=== PATIENT | male | born 1955 | race Caucasian/White ===

== ENCOUNTER 2016-07-26 06:45 | Emergency (ER) | payer OTHER ==
[~2016-07-26] VITALS: Ht 175.3 cm; Wt 85.3 kg
[2016-07-26 07:04] VITALS: BP 117/71
[2016-07-26] MEDS ORDERED: metroNIDAZOLE 500 MG TAB PO ONE (07:30)
[2016-07-26] MEDS ORDERED: LIDOCAINE 1% HCL (LOCAL ANESTH.) INJ 20ML MDV ONE (07:30)
[2016-07-26] MEDS ORDERED: cefTRIAXone SOD 1,000 MG VL ONE (07:30)
[2016-07-26] MEDS ORDERED: cefTRIAXone W LIDOCAINE 1 GM IM IM ONE (07:30)
[2016-07-26 07:33] LABS: Basophils # (auto) 0 uL; Basophils % (auto) 0.3 % (0.0-2.0); DEFINITIVE VIEW TRANSMISSION; Eosinophils # (auto) 0.1 uL; Eosinophils % (auto) 1.1 % (0.0-7.0); Hematocrit 43.5 % (41.0-53.0); Hemoglobin 14.5 g/dL (13.5-17.5); Lymphocytes # (auto) 1.6 uL; Lymphocytes % (auto) 13.8 % (10.0-50.0); Mean Corpuscular Hemoglobin 26.8 pg (28.0-32.0); Mean Corpuscular Hgb Conc. 33.3 g/dL (32.0-36.0); Mean Corpuscular Volume 80.4 fL (80.0-100.0); Mean Platelet Volume 7.5 fL (7.4-10.4); Monocytes # (auto) 0.8 uL; Monocytes % (auto) 7.5 % (0.0-12.0); Neutrophils # (auto) 8.7 uL; Neutrophils % (auto) 77.3 % (37.0-80.0); Platelet Count (auto) 401 10^3/uL (140-450); Red Cell Distribution Width 14.4 % (11.6-16.0); White Blood Cell 11.2 10^3/uL (4.4-10.8)
[2016-07-26 08:13] LABS: Albumin 3.2 g/dL (3.4-5.0); BUN/Creatinine Ratio 12.9; Bilirubin, Total 0.3 mg/dL (0.2-1.0); Calcium 9.3 mg/dL (8.5-10.1); Potassium 4.3 mmol/L (3.5-5.1); Total Protein 7.8 g/dL (6.4-8.2)
[2016-07-26] MEDS ORDERED: METF-490 PO (14:34)
[2016-07-26] MEDS ORDERED: GLIP-115 PO (14:34)
[2016-07-26] MEDS ORDERED: LEVEMIR SC (14:34)
[2016-07-26] MEDS ORDERED: AMIT1TAB92 PO (14:34)
[2016-07-26] MEDS ORDERED: CYCL7.5T15 PO (14:34)
== END 2016-07-26 08:01 | disposition left against medical advice (07) ==
LOC: ER 06:50
DX: L03.116 Cellulitis of left lower limb (principal); E11.9 Type 2 diabetes mellitus without complications; E78.5 Hyperlipidemia, unspecified; I10 Essential (primary) hypertension; F17.210 Nicotine dependence, cigarettes, uncomplicated
CPT/HCPCS: 36415; 80053; 85025; 87040; 96372; 99284; J0696; J2001

== ENCOUNTER 2016-07-26 09:53 | Inpatient (IN) | payer OTHER ==
[~2016-07-26] VITALS: Ht 175.3 cm; Wt 84.0 kg
[2016-07-26] MEDS ORDERED: DEXTROSE (50%) 50ML SYRG IV PRN (12:00)
[2016-07-26] MEDS ORDERED: ACETAMINOPHEN 325 MG TAB PO PRN (12:15)
[2016-07-26] MEDS ORDERED: PATIENTS OWN MEDICATION PO PRN ×2 (12:15)
[2016-07-26] MEDS ORDERED: TEMAZEPAM 15 MG CAP PO PRN (12:15)
[2016-07-26] MEDS ORDERED: DOCUSATE SOD 100 MG CAP PO PRN (12:15)
[2016-07-26] MEDS ORDERED: cefTRIAXone 1GM/50ML D5W 50 ML IV ONE (12:15)
[2016-07-26] MEDS ORDERED: MORPHINE SULF INJ 2 MG/ML SYRINGE 1ML IV PRN (12:15)
[2016-07-26] MEDS ORDERED: ONDANSETRON HCL 4 MG/2 ML VIAL IV PRN (12:15)
[2016-07-26] MEDS ORDERED: MULTIPLE VITAMIN TAB PO ONE (12:30)
[2016-07-26] MEDS ORDERED: ZINC SULFATE 220 MG CAP PO ONE (12:30)
[2016-07-26] MEDS ORDERED: FELDENE PO PRN (12:30)
[2016-07-26] MEDS: SODIUM CHLOR 0.9% PF (SALINE LOCK) 10ML VIAL IV SCH ×2 (14:00→21:07)
[2016-07-26] MEDS ORDERED: GLIP-115 PO (14:34)
[2016-07-26] MEDS ORDERED: LEVEMIR SC (14:34)
[2016-07-26] MEDS ORDERED: METF-490 PO (14:34)
[2016-07-26] MEDS ORDERED: AMIT1TAB92 PO (14:34)
[2016-07-26] MEDS ORDERED: CYCL7.5T15 PO (14:34)
[2016-07-26 14:35] VITALS: BP 123/71
[2016-07-26] MEDS: CLINDAMYCIN 300MG IV 50 ML IV SCH ×2 (15:09→21:07)
[2016-07-26 17:00] VITALS: BP 128/64
[2016-07-26] MEDS: ACCU-CHEK COMFORT CURVE STRIP VI SCH ×2 (17:20→21:30)
[2016-07-26] MEDS: InsuLIN REG 1unit/0.01ml Soln (100units/ml) SC SCH ×2 (17:22→21:51)
[2016-07-26] MEDS: Boost Glucose Control 8 Ounces PO SCH (17:32)
[2016-07-26] MEDS: metFORMIN HYDROCHLORIDE 500 MG TAB PO SCH (17:32)
[2016-07-26 20:05] VITALS: BP 120/64
[2016-07-26] MEDS: ASCORBIC ACID 500 MG TAB PO SCH (21:07)
[2016-07-26 21:52] VITALS: BP 117/50
[2016-07-27 05:17] VITALS: BP 142/74
[2016-07-27] MEDS: CLINDAMYCIN 300MG IV 50 ML IV SCH ×3 (05:38→22:08)
[2016-07-27] MEDS: SODIUM CHLOR 0.9% PF (SALINE LOCK) 10ML VIAL IV SCH ×3 (05:38→22:08)
[2016-07-27 06:09] LABS: Basophils # (auto) 0.1 uL; Basophils % (auto) 0.5 % (0.0-2.0); DEFINITIVE VIEW TRANSMISSION; Eosinophils # (auto) 0.2 uL; Hematocrit 41.8 % (41.0-53.0); Hemoglobin 13.8 g/dL (13.5-17.5); Lymphocytes # (auto) 2.4 uL; Lymphocytes % (auto) 23.1 % (10.0-50.0); Mean Corpuscular Hemoglobin 26.5 pg (28.0-32.0); Mean Corpuscular Hgb Conc. 32.9 g/dL (32.0-36.0); Mean Corpuscular Volume 80.7 fL (80.0-100.0); Mean Platelet Volume 7.8 fL (7.4-10.4); Monocytes # (auto) 0.9 uL; Monocytes % (auto) 8.2 % (0.0-12.0); Neutrophils % (auto) 66.2 % (37.0-80.0); Platelet Count (auto) 393 10^3/uL (140-450); Red Cell Distribution Width 14.8 % (11.6-16.0); White Blood Cell 10.5 10^3/uL (4.4-10.8)
[2016-07-27] MEDS: ACCU-CHEK COMFORT CURVE STRIP VI SCH ×4 (06:20→22:25)
[2016-07-27 06:34] LABS: Albumin 2.9 g/dL (3.4-5.0); Bilirubin, Total 0.3 mg/dL (0.2-1.0); Calcium 9.5 mg/dL (8.5-10.1); Potassium 4.8 mmol/L (3.5-5.1); Total Protein 7.1 g/dL (6.4-8.2)
[2016-07-27] MEDS: InsuLIN REG 1unit/0.01ml Soln (100units/ml) SC SCH ×4 (06:36→22:33)
[2016-07-27] MEDS: INSULIN DETEMIR(LEVEMIR) 1unit/0.01ml Soln (100units/ml) SC SCH (06:53)
[2016-07-27] MEDS: metFORMIN HYDROCHLORIDE 500 MG TAB PO SCH ×2 (06:54→17:37)
[2016-07-27] MEDS: Boost Glucose Control 8 Ounces PO SCH ×3 (08:00→17:37)
[2016-07-27 08:52] VITALS: BP 123/72
[2016-07-27] MEDS: ASCORBIC ACID 500 MG TAB PO SCH ×2 (09:18→22:08)
[2016-07-27] MEDS: MULTIPLE VITAMIN TAB PO SCH (09:18)
[2016-07-27] MEDS: cefTRIAXone 1GM/50ML D5W 50 ML IV SCH (09:18)
[2016-07-27] MEDS: ZINC SULFATE 220 MG CAP PO SCH (09:18)
[2016-07-27 13:00] VITALS: BP 123/69
[2016-07-27 16:52] VITALS: BP 102/54
[2016-07-27] MEDS: CYCLOBENZAPRINE HCL 10 MG TAB PO PRN (17:38)
[2016-07-27] MEDS: HYDROcodone-ACET 5/325MG TAB PO PRN (18:26)
[2016-07-27 23:24] VITALS: BP 109/63
[2016-07-28 05:24] VITALS: BP 112/56
[2016-07-28 05:43] LABS: BUN/Creatinine Ratio 17.6; Calcium 9.1 mg/dL (8.5-10.1); Potassium 4.1 mmol/L (3.5-5.1)
[2016-07-28] MEDS: CLINDAMYCIN 300MG IV 50 ML IV SCH ×3 (06:10→22:05)
[2016-07-28] MEDS: SODIUM CHLOR 0.9% PF (SALINE LOCK) 10ML VIAL IV SCH ×3 (06:10→22:05)
[2016-07-28] MEDS: metFORMIN HYDROCHLORIDE 500 MG TAB PO SCH ×2 (06:11→17:43)
[2016-07-28] MEDS: ACCU-CHEK COMFORT CURVE STRIP VI SCH ×4 (06:30→22:05)
[2016-07-28] MEDS: INSULIN DETEMIR(LEVEMIR) 1unit/0.01ml Soln (100units/ml) SC SCH (06:30)
[2016-07-28] MEDS: InsuLIN REG 1unit/0.01ml Soln (100units/ml) SC SCH ×4 (06:31→22:00)
[2016-07-28] MEDS: Boost Glucose Control 8 Ounces PO SCH ×3 (08:00→17:43)
[2016-07-28] MEDS: ZINC SULFATE 220 MG CAP PO SCH (09:51)
[2016-07-28] MEDS: MULTIPLE VITAMIN TAB PO SCH (09:52)
[2016-07-28] MEDS: ASCORBIC ACID 500 MG TAB PO SCH ×2 (09:52→22:05)
[2016-07-28 09:53] VITALS: BP 114/62
[2016-07-28] MEDS: cefTRIAXone 1GM/50ML D5W 50 ML IV SCH (09:54)
[2016-07-28] MEDS: HYDROcodone-ACET 5/325MG TAB PO PRN ×2 (13:59→23:28)
[2016-07-28] MEDS: CYCLOBENZAPRINE HCL 10 MG TAB PO PRN (13:59)
[2016-07-28 17:02] VITALS: BP 95/62
[2016-07-28 22:47] VITALS: BP 96/56
[2016-07-29] MEDS: CLINDAMYCIN 300MG IV 50 ML IV SCH ×3 (05:36→22:18)
[2016-07-29] MEDS: SODIUM CHLOR 0.9% PF (SALINE LOCK) 10ML VIAL IV SCH ×3 (05:36→22:19)
[2016-07-29 05:59] VITALS: BP 103/57
[2016-07-29] MEDS: ACCU-CHEK COMFORT CURVE STRIP VI SCH ×4 (06:47→22:00)
[2016-07-29] MEDS: InsuLIN REG 1unit/0.01ml Soln (100units/ml) SC SCH ×4 (06:48→22:00)
[2016-07-29] MEDS: INSULIN DETEMIR(LEVEMIR) 1unit/0.01ml Soln (100units/ml) SC SCH (06:50)
[2016-07-29] MEDS: metFORMIN HYDROCHLORIDE 500 MG TAB PO SCH ×2 (06:53→17:33)
[2016-07-29 09:00] VITALS: BP 103/59
[2016-07-29] MEDS: MULTIPLE VITAMIN TAB PO SCH (09:31)
[2016-07-29] MEDS: ZINC SULFATE 220 MG CAP PO SCH (09:31)
[2016-07-29] MEDS: ASCORBIC ACID 500 MG TAB PO SCH ×2 (09:31→22:18)
[2016-07-29] MEDS: cefTRIAXone 1GM/50ML D5W 50 ML IV SCH (09:32)
[2016-07-29] MEDS: Boost Glucose Control 8 Ounces PO SCH ×3 (09:48→17:33)
[2016-07-29] MEDS: HYDROcodone-ACET 5/325MG TAB PO PRN ×2 (11:15→22:48)
[2016-07-29 13:00] VITALS: BP 114/60
[2016-07-29 17:00] VITALS: BP 121/61
[2016-07-29 20:00] VITALS: BP 109/64
[2016-07-29 22:00] VITALS: BP 109/64
[2016-07-29] MEDS: CYCLOBENZAPRINE HCL 10 MG TAB PO PRN (22:48)
[2016-07-30 05:30] VITALS: BP 102/45
[2016-07-30] MEDS: SODIUM CHLOR 0.9% PF (SALINE LOCK) 10ML VIAL IV SCH ×3 (05:46→22:12)
[2016-07-30] MEDS: CLINDAMYCIN 300MG IV 50 ML IV SCH ×3 (05:46→22:11)
[2016-07-30] MEDS: ACCU-CHEK COMFORT CURVE STRIP VI SCH ×4 (06:24→22:21)
[2016-07-30] MEDS: InsuLIN REG 1unit/0.01ml Soln (100units/ml) SC SCH ×4 (06:24→22:00)
[2016-07-30] MEDS: INSULIN DETEMIR(LEVEMIR) 1unit/0.01ml Soln (100units/ml) SC SCH (06:40)
[2016-07-30] MEDS: metFORMIN HYDROCHLORIDE 500 MG TAB PO SCH ×2 (06:41→16:17)
[2016-07-30] MEDS: Boost Glucose Control 8 Ounces PO SCH ×3 (08:00→16:51)
[2016-07-30 09:00] VITALS: BP 118/63
[2016-07-30] MEDS: ZINC SULFATE 220 MG CAP PO SCH (09:38)
[2016-07-30] MEDS: MULTIPLE VITAMIN TAB PO SCH (09:38)
[2016-07-30] MEDS: ASCORBIC ACID 500 MG TAB PO SCH ×2 (09:38→22:12)
[2016-07-30] MEDS: cefTRIAXone 1GM/50ML D5W 50 ML IV SCH (09:38)
[2016-07-30 11:55] VITALS: BP 114/68
[2016-07-30] MEDS: HYDROcodone-ACET 5/325MG TAB PO PRN ×2 (16:18→22:11)
[2016-07-30] MEDS: CYCLOBENZAPRINE HCL 10 MG TAB PO PRN (16:18)
[2016-07-30 17:00] VITALS: BP 114/65
[2016-07-30 21:42] VITALS: BP 120/67
[2016-07-31 05:05] VITALS: BP 139/74
[2016-07-31] MEDS: CLINDAMYCIN 300MG IV 50 ML IV SCH ×2 (05:30→12:45)
[2016-07-31] MEDS: HYDROcodone-ACET 5/325MG TAB PO PRN (05:36)
[2016-07-31] MEDS: CYCLOBENZAPRINE HCL 10 MG TAB PO PRN (05:36)
[2016-07-31] MEDS: SODIUM CHLOR 0.9% PF (SALINE LOCK) 10ML VIAL IV SCH ×2 (05:39→13:41)
[2016-07-31 06:26] LABS: Basophils # (auto) 0 uL; Basophils % (auto) 0.4 % (0.0-2.0); DEFINITIVE VIEW TRANSMISSION; Eosinophils # (auto) 0.1 uL; Eosinophils % (auto) 1.3 % (0.0-7.0); Hematocrit 40.7 % (41.0-53.0); Hemoglobin 13.4 g/dL (13.5-17.5); Lymphocytes # (auto) 2.7 uL; Lymphocytes % (auto) 24.8 % (10.0-50.0); Mean Corpuscular Hemoglobin 26.3 pg (28.0-32.0); Mean Corpuscular Hgb Conc. 32.9 g/dL (32.0-36.0); Mean Platelet Volume 7.2 fL (7.4-10.4); Monocytes # (auto) 0.9 uL; Monocytes % (auto) 8.4 % (0.0-12.0); Neutrophils # (auto) 7.1 uL; Neutrophils % (auto) 65.1 % (37.0-80.0); Platelet Count (auto) 421 10^3/uL (140-450); Red Cell Distribution Width 14.6 % (11.6-16.0); White Blood Cell 10.8 10^3/uL (4.4-10.8)
[2016-07-31] MEDS: ACCU-CHEK COMFORT CURVE STRIP VI SCH ×2 (06:44→11:58)
[2016-07-31] MEDS: INSULIN DETEMIR(LEVEMIR) 1unit/0.01ml Soln (100units/ml) SC SCH (06:45)
[2016-07-31] MEDS: InsuLIN REG 1unit/0.01ml Soln (100units/ml) SC SCH ×2 (06:45→11:30)
[2016-07-31] MEDS: metFORMIN HYDROCHLORIDE 500 MG TAB PO SCH (06:46)
[2016-07-31 08:00] VITALS: BP 99/62
[2016-07-31] MEDS: Boost Glucose Control 8 Ounces PO SCH ×2 (08:00→11:59)
[2016-07-31] MEDS: ZINC SULFATE 220 MG CAP PO SCH (09:33)
[2016-07-31] MEDS: ASCORBIC ACID 500 MG TAB PO SCH (09:33)
[2016-07-31] MEDS: MULTIPLE VITAMIN TAB PO SCH (09:33)
[2016-07-31] MEDS: cefTRIAXone 1GM/50ML D5W 50 ML IV SCH (09:33)
[2016-07-31 13:00] VITALS: BP 118/62
== END 2016-07-31 14:00 | disposition home or self-care (01) | DRG 638 ==
LOC: ER 09:53 → OVERFLOW 09:54 → EAST 14:05 → CENTRAL 15:10
PROVIDERS: ADMIT Internal Medicine; ATTEND Internal Medicine
DX: E11.621 Type 2 diabetes mellitus with foot ulcer (principal); L03.116 Cellulitis of left lower limb; E44.1 Mild protein-calorie malnutrition; F17.210 Nicotine dependence, cigarettes, uncomplicated; L97.529 Non-pressure chronic ulcer of other part of left foot with unspecified severity; E78.5 Hyperlipidemia, unspecified; M45.9 Ankylosing spondylitis of unspecified sites in spine; E11.65 Type 2 diabetes mellitus with hyperglycemia; N18.2 Chronic kidney disease, stage 2 (mild); E11.22 Type 2 diabetes mellitus with diabetic chronic kidney disease; E11.21 Type 2 diabetes mellitus with diabetic nephropathy; I12.9 Hypertensive chronic kidney disease with stage 1 through stage 4 chronic kidney disease, or unspecified chronic kidney disease; Z82.49 Family history of ischemic heart disease and other diseases of the circulatory system; Z79.4 Long term (current) use of insulin; Z86.73 Personal history of transient ischemic attack (TIA), and cerebral infarction without residual deficits; Z68.27 Body mass index [BMI] 27.0-27.9, adult; Z83.3 Family history of diabetes mellitus
CPT/HCPCS: 36415; 73718; 80048; 80053; 80061; 82962; 83036; 83735; 85025; 87040; 87205; J0696; J1815; J3490

== ENCOUNTER 2016-08-31 18:38 | Inpatient (IN) | payer OTHER ==
[~2016-08-31] VITALS: Ht 175.3 cm; Wt 79.2 kg
[~2016-08-31 18:38] MED LIST: AMIT1TAB92 PO; CYCL7.5T15 PO; GLIP-115 PO; LEVEMIR SC; METF-490 PO
[2016-08-31 21:55] LABS: Basophils # (auto) 0.1 uL; Basophils % (auto) 1.1 % (0.0-2.0); DEFINITIVE VIEW TRANSMISSION; Eosinophils # (auto) 0.2 uL; Eosinophils % (auto) 1.5 % (0.0-7.0); Hematocrit 46.2 % (41.0-53.0); Hemoglobin 15.1 g/dL (13.5-17.5); Lymphocytes # (auto) 3.1 uL; Lymphocytes % (auto) 25.9 % (10.0-50.0); Mean Corpuscular Hgb Conc. 32.8 g/dL (32.0-36.0); Mean Corpuscular Volume 79.4 fL (80.0-100.0); Mean Platelet Volume 7.6 fL (7.4-10.4); Monocytes # (auto) 1.1 uL; Monocytes % (auto) 8.9 % (0.0-12.0); Neutrophils # (auto) 7.3 uL; Neutrophils % (auto) 62.6 % (37.0-80.0); Platelet Count (auto) 397 10^3/uL (140-450); Red Cell Distribution Width 14.8 % (11.6-16.0); White Blood Cell 11.8 10^3/uL (4.4-10.8)
[2016-08-31 22:17] LABS: Albumin 3.9 g/dL (3.4-5.0); BUN/Creatinine Ratio 18.4; Calcium 9.2 mg/dL (8.5-10.1); Potassium 4.1 mmol/L (3.5-5.1)
[2016-08-31 22:19] LABS: Bilirubin, Total 0.3 mg/dL (0.2-1.0); Total Protein 8.3 g/dL (6.4-8.2)
[2016-09-01 00:34] LABS: INR 0.96 (0.9-1.15); Prothrombin Time 10.4 sec (9.37-12.3)
[2016-09-01] MEDS ORDERED: DEXTROSE (50%) 50ML SYRG IV PRN (03:15)
[2016-09-01] MEDS ORDERED: MORPHINE SULF INJ 2 MG/ML SYRINGE 1ML IV PRN (03:15)
[2016-09-01] MEDS ORDERED: ONDANSETRON HCL 4 MG/2 ML VIAL IV PRN (03:15)
[2016-09-01] MEDS: SODIUM CHLORIDE 0.9% 1,000 ML IV SCH ×2 (03:26→15:33)
[2016-09-01 05:00] VITALS: BP_SYST 119; BP_SYST 157; BP_DIAS 66; BP_DIAS 83
[2016-09-01] MEDS: InsuLIN REG 1unit/0.01ml Soln (100units/ml) SC SCH ×3 (06:00→18:15)
[2016-09-01] MEDS: ACCU-CHEK COMFORT CURVE STRIP VI SCH ×3 (06:08→18:14)
[2016-09-01] MEDS: CLINDAMYCIN 600MG IV 50 ML IV SCH ×3 (06:08→23:10)
[2016-09-01] MEDS ORDERED: PIRO-23 PO (07:50)
[2016-09-01 08:00] VITALS: BP 130/68
[2016-09-01 08:07] VITALS: BP 130/68
[2016-09-01] MEDS: PANTOPRAZOLE SODIUM 40 MG/10 ML VIAL IV SCH (10:22)
[2016-09-01 12:17] VITALS: BP 98/58
[2016-09-01] MEDS ORDERED: ceFAZolin 1GM/50ML D5W 50 ML IV ONE (13:36)
[2016-09-01] MEDS ORDERED: MIDAZOLAM HCL 1MG/1ML-2 ML VIAL ONE (14:16)
[2016-09-01] MEDS ORDERED: PROPOFOL 10 MG/ML 20 ML IV ONE (14:16)
[2016-09-01] MEDS ORDERED: fentaNYL CITRATE 100 MCG/2 ML VL ONE (14:18)
[2016-09-01] MEDS ORDERED: fentaNYL CITRATE 100 MCG/2 ML VL IV ONE (15:00)
[2016-09-01] MEDS ORDERED: ONDANSETRON HCL 4 MG/2 ML VIAL IV ONE (15:00)
[2016-09-01] MEDS ORDERED: ePHEDrine SULFATE 50 MG/ML AMP IV PRN (15:00)
[2016-09-01] MEDS ORDERED: hydrALAZINE HCL 20 MG/ML VL IV PRN (15:00)
[2016-09-01 22:00] VITALS: BP 121/57
[2016-09-02] MEDS: InsuLIN REG 1unit/0.01ml Soln (100units/ml) SC SCH ×3 (00:52→12:00)
[2016-09-02] MEDS: SODIUM CHLORIDE 0.9% 1,000 ML IV SCH (04:03)
[2016-09-02 05:00] VITALS: BP 118/67
[2016-09-02] MEDS: ACCU-CHEK COMFORT CURVE STRIP VI SCH ×3 (06:00→12:00)
[2016-09-02] MEDS: CLINDAMYCIN 600MG IV 50 ML IV SCH ×2 (06:23→14:00)
[2016-09-02 06:33] LABS: Basophils # (auto) 0 uL; Basophils % (auto) 0.5 % (0.0-2.0); DEFINITIVE VIEW TRANSMISSION; Eosinophils # (auto) 0.2 uL; Eosinophils % (auto) 2.7 % (0.0-7.0); Hemoglobin 12.9 g/dL (13.5-17.5); Lymphocytes # (auto) 2.3 uL; Mean Corpuscular Hemoglobin 25.9 pg (28.0-32.0); Mean Corpuscular Hgb Conc. 32.2 g/dL (32.0-36.0); Mean Corpuscular Volume 80.6 fL (80.0-100.0); Monocytes # (auto) 0.8 uL; Monocytes % (auto) 9.8 % (0.0-12.0); Neutrophils # (auto) 4.4 uL; Platelet Count (auto) 298 10^3/uL (140-450); Red Cell Distribution Width 16.5 % (11.6-16.0); White Blood Cell 7.8 10^3/uL (4.4-10.8)
[2016-09-02 07:25] LABS: Bilirubin, Total 0.3 mg/dL (0.2-1.0); Calcium 8.5 mg/dL (8.5-10.1); Potassium 4.3 mmol/L (3.5-5.1); Total Protein 6.9 g/dL (6.4-8.2)
[2016-09-02 08:00] VITALS: BP 113/61
[2016-09-02 08:36] VITALS: BP 113/61
[2016-09-02] MEDS: PANTOPRAZOLE SODIUM 40 MG/10 ML VIAL IV SCH (10:16)
[2016-09-02 12:12] VITALS: BP 113/61
[2016-09-02 13:06] VITALS: BP 136/71
[2016-09-02 13:37] VITALS: BP 136/71
== END 2016-09-02 16:30 | disposition home or self-care (01) | DRG 624 ==
LOC: ER 18:50 → OVERFLOW 18:51 → WEST WING 09-01 03:42
PROVIDERS: ADMIT Nurse Practitioner; ATTEND Family Medicine
PROC: 0HRNXK3 Replacement of Left Foot Skin with Nonautologous Tissue Substitute, Full Thickness, External Approach (ICD-10-PCS; 2016-09-01)
PROC: 0JBR0ZZ Excision of Left Foot Subcutaneous Tissue and Fascia, Open Approach (ICD-10-PCS; principal; 2016-09-01 14:23)
DX: E11.621 Type 2 diabetes mellitus with foot ulcer (principal); L97.529 Non-pressure chronic ulcer of other part of left foot with unspecified severity; D72.829 Elevated white blood cell count, unspecified; I10 Essential (primary) hypertension; E78.5 Hyperlipidemia, unspecified; F17.210 Nicotine dependence, cigarettes, uncomplicated; Z82.49 Family history of ischemic heart disease and other diseases of the circulatory system; Z86.73 Personal history of transient ischemic attack (TIA), and cerebral infarction without residual deficits; Z83.3 Family history of diabetes mellitus
CPT/HCPCS: 36415; 71020; 80053; 82962; 84484; 85025; 85610; 85730; 87070; 87075; 87076; 87077; 87186; 87205; 93005; C9113; J0690; J1815; J2250; J2704; J3490

== ENCOUNTER 2020-07-15 08:41 | Inpatient (IN) | payer BC, OTHER ==
[~2020-07-15] VITALS: Ht 172.7 cm; Wt 68.1 kg
[~2020-07-15 08:41] MED LIST changes: -CYCL7.5T15 PO; +CYCL7.5T45 PO; -GLIP-115 PO; +GLIP5TAB12 PO; +PIRO20CA PO
[2020-07-15 09:17] LABS: Basophils # (auto) 0.1 10 ^3/uL (0-0.2); Eosinophils # (auto) 0.1 10 ^3/uL (0-0.8); Eosinophils % (auto) 1.1 % (0.0-7.0); Mean Corpuscular Hemoglobin 26.4 pg (28.0-32.0)
[2020-07-15 09:20] LABS: Basophils % (auto) 0.7 % (0.0-2.0); Hematocrit 38.5 % (41.0-53.0); Hemoglobin 13.1 g/dL (13.5-17.5); Lymphocytes # (auto) 1.9 10 ^3/uL (0.4-5.4); Lymphocytes % (auto) 14.5 % (10.0-50.0); Mean Corpuscular Hgb Conc. 33.9 g/dL (32.0-36.0); Mean Corpuscular Volume 77.7 fL (80.0-100.0); Monocytes # (auto) 1.3 10 ^3/uL (0-1.3); Monocytes % (auto) 9.6 % (0.0-12.0); Neutrophils # (auto) 9.7 10 ^3/uL (1.6-8.6); Neutrophils % (auto) 74.1 % (37.0-80.0); Nucleated Red Blood Cells % 0.4 %; Platelet Count (auto) 456 10^3/uL (140-450); Red Blood Cells 4.96 10^6/uL (4.5-5.90); Red Cell Distribution Width 15.5 % (11.8-14.3); White Blood Cell 13.1 10^3/uL (4.4-10.8)
[2020-07-15 09:34] LABS: Albumin 2.8 g/dL (3.4-5.0); Calcium 8.6 mg/dL (8.5-10.1)
[2020-07-15 09:37] LABS: BUN/Creatinine Ratio 14.1; Bilirubin, Total 0.4 mg/dL (0.2-1.0); Total Protein 7.5 g/dL (6.4-8.2)
[2020-07-15] MEDS ORDERED: PIPERACILLIN-TAZOB 3.375GM 100 ML IV ONE (12:00)
[2020-07-15] MEDS ORDERED: IOHEXOL 300 MG/ML 100ML BOTTLE IJ ONE (12:53)
[2020-07-15] MEDS ORDERED: IOHEXOL 350 MG/ML 100ML IJ ONE (13:14)
[2020-07-15] MEDS ORDERED: DEXTROSE (50%) 50ML SYRG IV PRN (13:45)
[2020-07-15] MEDS ORDERED: MORPHINE SULF INJ 2 MG/ML SYRINGE 1ML IV PRN (13:45)
[2020-07-15] MEDS ORDERED: ACETAMINOPHEN 500 MG TAB PO PRN (13:45)
[2020-07-15] MEDS ORDERED: NITROGLYCERIN 0.4 MG SL TAB SL PRN (13:45)
[2020-07-15] MEDS ORDERED: VANCOMYCIN PER PHARMACY 0 MG IV SCH (13:45)
[2020-07-15] MEDS ORDERED: cefTRIAXone 1GM/50ML D5W 50 ML IV SCH (13:50)
[2020-07-15 14:43] LABS: INR 1.08 (0.9-1.15); Partial Thromboplastin Time 34.2 sec (23.0-31.2)
[2020-07-15] MEDS ORDERED: MIDAZOLAM HCL 1MG/1ML-2 ML VIAL ONE (14:53)
[2020-07-15] MEDS ORDERED: fentaNYL CITRATE 100 MCG/2 ML VL ONE (14:53)
[2020-07-15] MEDS ORDERED: LIDOCAINE 2%HCL (LOCAL ANESTH.) INJ 20ML MDV ONE (14:54)
[2020-07-15] MEDS ORDERED: SODIUM CHL 0.9% 50 ML ONE (14:54)
[2020-07-15] MEDS ORDERED: VANCOMYCIN 1GM/250ML 250 ML IV ONE (16:00)
[2020-07-15] MEDS ORDERED: EPTIFIBATIDE INJ (2MG/ML) 10ML VIAL IV ONE (16:13)
[2020-07-15] MEDS ORDERED: diphenhdrAMINE HCL 50 MG/1 ML VL ONE (16:30)
[2020-07-15] MEDS ORDERED: CLOPIDOGREL 300 MG TAB ONE (16:39)
[2020-07-15] MEDS: InsuLIN REG 1unit/0.01ml Soln (100units/ml) SC SCH ×2 (18:41→21:33)
[2020-07-15] MEDS: ACCU-CHEK COMFORT CURVE STRIP VI SCH ×2 (18:41→21:33)
[2020-07-15 18:45] VITALS: BP 142/85
[2020-07-15] MEDS: SUCRALFATE 1 GM/10 ML ORAL SUSP PO SCH (19:11)
[2020-07-15] MEDS: cefTRIAXone 1GM/50ML D5W 50 ML IV SCH (19:12)
[2020-07-15 19:32] LABS: Basophils # (auto) 0.1 10 ^3/uL (0-0.2); Eosinophils # (auto) 0.1 10 ^3/uL (0-0.8); Lymphocytes # (auto) 2.2 10 ^3/uL (0.4-5.4); Neutrophils # (auto) 6.8 10 ^3/uL (1.6-8.6); Red Cell Distribution Width 15.2 % (11.8-14.3)
[2020-07-15 19:34] LABS: Basophils % (auto) 0.7 % (0.0-2.0); Eosinophils % (auto) 1.2 % (0.0-7.0); Hematocrit 37.7 % (41.0-53.0); Hemoglobin 12.9 g/dL (13.5-17.5); Mean Corpuscular Hemoglobin 26.6 pg (28.0-32.0); Mean Corpuscular Hgb Conc. 34.2 g/dL (32.0-36.0); Mean Corpuscular Volume 77.8 fL (80.0-100.0); Monocytes % (auto) 9.8 % (0.0-12.0); Neutrophils % (auto) 66.3 % (37.0-80.0); Platelet Count (auto) 377 10^3/uL (140-450); Red Blood Cells 4.85 10^6/uL (4.5-5.90); White Blood Cell 10.2 10^3/uL (4.4-10.8)
[2020-07-15 19:40] VITALS: BP 125/55
[2020-07-15 19:56] LABS: INR 1.22 (0.9-1.15); Partial Thromboplastin Time 60.4 sec (23.0-31.2)
[2020-07-15] MEDS ORDERED: HEPARIN SODIUM (PORCINE) 5000 UNITS/ML 1ML VIAL IV ONE (20:00)
[2020-07-15] MEDS: VANCOMYCIN 750mg/250ml 250 ML IV SCH (20:34)
[2020-07-15] MEDS: HEPARIN DRIP/D5W 100UNITS/ML 250 ML IV SCH (20:39)
[2020-07-15] MEDS: ATORVASTATIN 20 MG TAB PO SCH (21:32)
[2020-07-15] MEDS: PANTOPRAZOLE 40 MG/10 ML VIAL INJ IV SCH (21:32)
[2020-07-15 22:00] VITALS: BP 127/68
[2020-07-15] MEDS: MORPHINE SULF INJ 2 MG/ML SYRINGE 1ML IV PRN (22:07)
[2020-07-16 03:09] LABS: Basophils # (auto) 0.1 10 ^3/uL (0-0.2); Basophils % (auto) 0.7 % (0.0-2.0); Eosinophils # (auto) 0.1 10 ^3/uL (0-0.8); Eosinophils % (auto) 1.3 % (0.0-7.0); Hematocrit 36.4 % (41.0-53.0); Hemoglobin 12.3 g/dL (13.5-17.5); Lymphocytes # (auto) 2.4 10 ^3/uL (0.4-5.4); Lymphocytes % (auto) 22.2 % (10.0-50.0); Mean Corpuscular Hemoglobin 26.3 pg (28.0-32.0); Mean Corpuscular Hgb Conc. 33.7 g/dL (32.0-36.0); Monocytes % (auto) 8.8 % (0.0-12.0); Neutrophils # (auto) 7.4 10 ^3/uL (1.6-8.6); Nucleated Red Blood Cells % 0.1 %; Platelet Count (auto) 373 10^3/uL (140-450); Red Blood Cells 4.66 10^6/uL (4.5-5.90); Red Cell Distribution Width 15.5 % (11.8-14.3)
[2020-07-16 03:23] LABS: INR 1.08 (0.9-1.15); Partial Thromboplastin Time 65.9 sec (23.0-31.2)
[2020-07-16 03:26] LABS: BUN/Creatinine Ratio 13.5; Calcium 8.4 mg/dL (8.5-10.1)
[2020-07-16] MEDS: VANCOMYCIN 750mg/250ml 250 ML IV SCH ×3 (03:30→22:07)
[2020-07-16 04:27] LABS: Urine Bacteria FEW /hpf (None Seen); Urine Blood 3+ /uL (Negative); Urine Mucus FEW (None Seen); Urine Specific Gravity 1.024 (1.001-1.035); Urine WBC 9 /hpf (0 - 3)
[2020-07-16 06:00] VITALS: BP 122/61
[2020-07-16] MEDS: SUCRALFATE 1 GM/10 ML ORAL SUSP PO SCH ×3 (06:14→17:33)
[2020-07-16] MEDS: InsuLIN REG 1unit/0.01ml Soln (100units/ml) SC SCH ×4 (06:24→22:15)
[2020-07-16] MEDS: ACCU-CHEK COMFORT CURVE STRIP VI SCH ×4 (06:25→22:07)
[2020-07-16 09:00] VITALS: BP 111/61
[2020-07-16] MEDS: ASPirin 81 mg TAB PO SCH (09:06)
[2020-07-16] MEDS: CLOPIDOGREL BISULFATE 75 MG TAB PO SCH (09:06)
[2020-07-16] MEDS: cefTRIAXone 1GM/50ML D5W 50 ML IV SCH (09:06)
[2020-07-16] MEDS: PANTOPRAZOLE 40 MG/10 ML VIAL INJ IV SCH ×2 (09:06→22:06)
[2020-07-16 10:03] LABS: INR 1.08 (0.9-1.15)
[2020-07-16 10:45] LABS: Partial Thromboplastin Time 80.6 sec (23.0-31.2)
[2020-07-16] MEDS ORDERED: METF-929 PO (12:56)
[2020-07-16] MEDS ORDERED: INSU1INJ5 SC (12:56)
[2020-07-16 13:00] VITALS: BP 139/63
[2020-07-16] MEDS ORDERED: OMEP-260 PO (13:01)
[2020-07-16] MEDS ORDERED: LACT10SO3 PO (13:02)
[2020-07-16] MEDS ORDERED: FINA5TAB4 PO (13:02)
[2020-07-16] MEDS: HEPARIN DRIP/D5W 100UNITS/ML 250 ML IV SCH (15:04)
[2020-07-16 16:39] LABS: INR 1.06 (0.9-1.15)
[2020-07-16 16:46] LABS: Partial Thromboplastin Time 71.9 sec (23.0-31.2)
[2020-07-16 17:20] VITALS: BP 97/63
[2020-07-16 20:00] VITALS: BP 117/66
[2020-07-16] MEDS: MORPHINE SULF INJ 2 MG/ML SYRINGE 1ML IV PRN (20:06)
[2020-07-16 21:33] LABS: INR 1.05 (0.9-1.15)
[2020-07-16 22:00] VITALS: BP 107/53
[2020-07-16] MEDS ORDERED: VANCOMYCIN 750mg/250ml 250 ML IV SCH (22:00)
[2020-07-16] MEDS: ATORVASTATIN 20 MG TAB PO SCH (22:07)
[2020-07-17] MEDS: MORPHINE SULF INJ 2 MG/ML SYRINGE 1ML IV PRN ×3 (00:48→22:04)
[2020-07-17 03:36] LABS: Basophils # (auto) 0.1 10 ^3/uL (0-0.2); Monocytes # (auto) 1.4 10 ^3/uL (0-1.3); Neutrophils # (auto) 10.4 10 ^3/uL (1.6-8.6)
[2020-07-17 03:39] LABS: Basophils % (auto) 0.6 % (0.0-2.0); Eosinophils # (auto) 0.2 10 ^3/uL (0-0.8); Eosinophils % (auto) 1.6 % (0.0-7.0); Hematocrit 38.9 % (41.0-53.0); Lymphocytes # (auto) 2.2 10 ^3/uL (0.4-5.4); Lymphocytes % (auto) 15.5 % (10.0-50.0); Mean Corpuscular Hemoglobin 26.2 pg (28.0-32.0); Mean Corpuscular Hgb Conc. 33.4 g/dL (32.0-36.0); Mean Corpuscular Volume 78.2 fL (80.0-100.0); Monocytes % (auto) 9.7 % (0.0-12.0); Neutrophils % (auto) 72.6 % (37.0-80.0); Nucleated Red Blood Cells % 0.2 %; Platelet Count (auto) 423 10^3/uL (140-450); Red Blood Cells 4.97 10^6/uL (4.5-5.90); Red Cell Distribution Width 15.2 % (11.8-14.3); White Blood Cell 14.3 10^3/uL (4.4-10.8)
[2020-07-17 04:05] LABS: INR 1.04 (0.9-1.15)
[2020-07-17 04:09] LABS: Partial Thromboplastin Time 75.4 sec (23.0-31.2)
[2020-07-17 05:00] VITALS: BP_SYST 119; BP_SYST 123; BP_DIAS 54; BP_DIAS 69
[2020-07-17] MEDS: SUCRALFATE 1 GM/10 ML ORAL SUSP PO SCH ×3 (06:10→17:32)
[2020-07-17] MEDS: ACCU-CHEK COMFORT CURVE STRIP VI SCH ×4 (06:11→22:03)
[2020-07-17] MEDS: InsuLIN REG 1unit/0.01ml Soln (100units/ml) SC SCH ×4 (06:12→21:56)
[2020-07-17 09:00] VITALS: BP 94/55
[2020-07-17 09:14] VITALS: BP 94/55
[2020-07-17] MEDS: VANCOMYCIN 750mg/250ml 250 ML IV SCH ×2 (09:33→17:32)
[2020-07-17] MEDS: cefTRIAXone 1GM/50ML D5W 50 ML IV SCH (09:34)
[2020-07-17] MEDS: PANTOPRAZOLE 40 MG/10 ML VIAL INJ IV SCH ×2 (09:35→22:03)
[2020-07-17] MEDS: ASPirin 81 mg TAB PO SCH (09:35)
[2020-07-17] MEDS: CLOPIDOGREL BISULFATE 75 MG TAB PO SCH (09:35)
[2020-07-17] MEDS: HEPARIN DRIP/D5W 100UNITS/ML 250 ML IV SCH (11:27)
[2020-07-17 12:25] LABS: INR 1.09 (0.9-1.15)
[2020-07-17 12:27] LABS: Partial Thromboplastin Time 78.4 sec (23.0-31.2)
[2020-07-17 12:32] VITALS: BP 100/52
[2020-07-17] MEDS ORDERED: HEPARIN DRIP/D5W 100UNITS/ML 250 ML IV SCH (12:45)
[2020-07-17 16:47] VITALS: BP 97/57
[2020-07-17 18:40] LABS: INR 1.07 (0.9-1.15); Partial Thromboplastin Time 59.5 sec (23.0-31.2)
[2020-07-17 22:00] VITALS: BP 118/62
[2020-07-17] MEDS: ATORVASTATIN 20 MG TAB PO SCH (22:03)
[2020-07-18 02:31] LABS: INR 1.06 (0.9-1.15); Partial Thromboplastin Time 56.5 sec (23.0-31.2)
[2020-07-18] MEDS: VANCOMYCIN 750mg/250ml 250 ML IV SCH ×3 (04:28→23:49)
[2020-07-18 05:00] VITALS: BP 102/49
[2020-07-18] MEDS: MORPHINE SULF INJ 2 MG/ML SYRINGE 1ML IV PRN ×3 (05:49→16:25)
[2020-07-18 05:57] LABS: Basophils # (auto) 0.1 10 ^3/uL (0-0.2); Basophils % (auto) 0.5 % (0.0-2.0); Nucleated Red Blood Cells % 0.1 %
[2020-07-18 06:05] LABS: Eosinophils # (auto) 0.3 10 ^3/uL (0-0.8); Eosinophils % (auto) 2.2 % (0.0-7.0); Hematocrit 35.8 % (41.0-53.0); Hemoglobin 12.1 g/dL (13.5-17.5); Lymphocytes # (auto) 1.6 10 ^3/uL (0.4-5.4); Lymphocytes % (auto) 13.4 % (10.0-50.0); Mean Corpuscular Hemoglobin 26.2 pg (28.0-32.0); Mean Corpuscular Hgb Conc. 33.8 g/dL (32.0-36.0); Mean Corpuscular Volume 77.5 fL (80.0-100.0); Monocytes # (auto) 1.3 10 ^3/uL (0-1.3); Monocytes % (auto) 10.9 % (0.0-12.0); Neutrophils # (auto) 8.8 10 ^3/uL (1.6-8.6); Platelet Count (auto) 367 10^3/uL (140-450); Red Blood Cells 4.62 10^6/uL (4.5-5.90); Red Cell Distribution Width 15.1 % (11.8-14.3)
[2020-07-18 06:17] LABS: INR 1.07 (0.9-1.15); Partial Thromboplastin Time 49.6 sec (23.0-31.2)
[2020-07-18] MEDS: ACCU-CHEK COMFORT CURVE STRIP VI SCH ×4 (07:00→21:48)
[2020-07-18] MEDS: SUCRALFATE 1 GM/10 ML ORAL SUSP PO SCH ×3 (07:00→18:23)
[2020-07-18] MEDS: InsuLIN REG 1unit/0.01ml Soln (100units/ml) SC SCH ×4 (07:00→21:48)
[2020-07-18] MEDS ORDERED: ROPIVACAINE 0.5% (5MG/ML) 20ML AMPULE IJ ONE (07:05)
[2020-07-18] MEDS ORDERED: ceFAZolin 1GM VL ONE (07:05)
[2020-07-18] MEDS ORDERED: PROPOFOL 10 MG/ML 20 ML IV ONE (07:07)
[2020-07-18] MEDS ORDERED: SODIUM CHLORIDE LOCK 10 ML ONE (07:07)
[2020-07-18] MEDS ORDERED: ONDANSETRON HCL 4 MG/2 ML VIAL ONE (07:07)
[2020-07-18] MEDS ORDERED: fentaNYL CITRATE 100 MCG/2 ML VL ONE (07:07)
[2020-07-18] MEDS ORDERED: MIDAZOLAM HCL 1MG/1ML-2 ML VIAL ONE (07:07)
[2020-07-18] MEDS ORDERED: ACCU-CHEK COMFORT CURVE STRIP VI ONE (07:30)
[2020-07-18] MEDS ORDERED: MORPHINE SULFATE 4 MG/ML SYR/VIAL IV PRN (07:30)
[2020-07-18] MEDS ORDERED: ONDANSETRON HCL 4 MG/2 ML VIAL IV PRN (07:30)
[2020-07-18] MEDS ORDERED: HYDROmorphone HCL 2 MG/ML VL IV PRN (07:30)
[2020-07-18] MEDS ORDERED: ceFAZolin 1GM/50ML 50 ML IV ONE (07:33)
[2020-07-18 08:00] VITALS: BP 106/62
[2020-07-18 08:41] VITALS: BP 102/49
[2020-07-18] MEDS: CLOPIDOGREL BISULFATE 75 MG TAB PO SCH (09:38)
[2020-07-18] MEDS: ASPirin 81 mg TAB PO SCH (09:38)
[2020-07-18] MEDS: PANTOPRAZOLE 40 MG/10 ML VIAL INJ IV SCH ×2 (09:38→21:28)
[2020-07-18] MEDS: cefTRIAXone 1GM/50ML D5W 50 ML IV SCH (09:39)
[2020-07-18 13:08] VITALS: BP 121/63
[2020-07-18 16:46] VITALS: BP 106/66
[2020-07-18] MEDS: ATORVASTATIN 20 MG TAB PO SCH (21:28)
[2020-07-18 22:00] VITALS: BP 111/74
[2020-07-19 05:00] VITALS: BP 115/65
[2020-07-19] MEDS: ACCU-CHEK COMFORT CURVE STRIP VI SCH ×4 (06:22→21:30)
[2020-07-19] MEDS: InsuLIN REG 1unit/0.01ml Soln (100units/ml) SC SCH ×4 (06:23→21:30)
[2020-07-19] MEDS: SUCRALFATE 1 GM/10 ML ORAL SUSP PO SCH ×3 (06:23→18:20)
[2020-07-19 08:00] VITALS: BP 115/64
[2020-07-19 08:20] VITALS: BP 115/64
[2020-07-19] MEDS: cefTRIAXone 1GM/50ML D5W 50 ML IV SCH (09:57)
[2020-07-19] MEDS: PANTOPRAZOLE 40 MG/10 ML VIAL INJ IV SCH ×2 (09:57→21:29)
[2020-07-19] MEDS: VANCOMYCIN 750mg/250ml 250 ML IV SCH ×2 (09:58→19:50)
[2020-07-19] MEDS: CLOPIDOGREL BISULFATE 75 MG TAB PO SCH (09:58)
[2020-07-19] MEDS: ASPirin 81 mg TAB PO SCH (09:58)
[2020-07-19 13:16] VITALS: BP 102/64
[2020-07-19 16:59] VITALS: BP 102/64
[2020-07-19] MEDS: MORPHINE SULF INJ 2 MG/ML SYRINGE 1ML IV PRN (20:34)
[2020-07-19] MEDS: ONDANSETRON HCL 4 MG/2 ML VIAL IV PRN (20:34)
[2020-07-19] MEDS: ATORVASTATIN 20 MG TAB PO SCH (21:29)
[2020-07-19 22:00] VITALS: BP 101/55
[2020-07-20 05:00] VITALS: BP 118/58
[2020-07-20] MEDS: VANCOMYCIN 750mg/250ml 250 ML IV SCH ×2 (05:36→16:50)
[2020-07-20] MEDS: InsuLIN REG 1unit/0.01ml Soln (100units/ml) SC SCH ×4 (06:04→23:35)
[2020-07-20] MEDS: SUCRALFATE 1 GM/10 ML ORAL SUSP PO SCH ×3 (06:04→18:05)
[2020-07-20] MEDS: ACCU-CHEK COMFORT CURVE STRIP VI SCH ×4 (06:04→23:13)
[2020-07-20 08:00] VITALS: BP 93/49
[2020-07-20 08:17] VITALS: BP 93/79
[2020-07-20] MEDS: ASPirin 81 mg TAB PO SCH (09:24)
[2020-07-20] MEDS: PANTOPRAZOLE 40 MG/10 ML VIAL INJ IV SCH ×2 (09:24→23:30)
[2020-07-20] MEDS: CLOPIDOGREL BISULFATE 75 MG TAB PO SCH (09:24)
[2020-07-20] MEDS: cefTRIAXone 1GM/50ML D5W 50 ML IV SCH (09:24)
[2020-07-20 12:57] VITALS: BP 119/55
[2020-07-20 13:46] LABS: INR 1.09 (0.9-1.15)
[2020-07-20 16:44] VITALS: BP 120/62
[2020-07-20] MEDS: MORPHINE SULF INJ 2 MG/ML SYRINGE 1ML IV PRN ×2 (18:06→22:59)
[2020-07-20 22:00] VITALS: BP 106/54
[2020-07-20] MEDS: ATORVASTATIN 20 MG TAB PO SCH (23:14)
[2020-07-21] MEDS: VANCOMYCIN 750mg/250ml 250 ML IV SCH ×3 (02:32→23:15)
[2020-07-21 05:00] VITALS: BP 105/48
[2020-07-21] MEDS: ACCU-CHEK COMFORT CURVE STRIP VI SCH ×4 (06:12→22:00)
[2020-07-21] MEDS: InsuLIN REG 1unit/0.01ml Soln (100units/ml) SC SCH ×4 (06:17→22:51)
[2020-07-21] MEDS: SUCRALFATE 1 GM/10 ML ORAL SUSP PO SCH ×3 (07:00→16:30)
[2020-07-21 08:47] VITALS: BP 113/56
[2020-07-21] MEDS: cefTRIAXone 1GM/50ML D5W 50 ML IV SCH (09:20)
[2020-07-21] MEDS: PANTOPRAZOLE 40 MG/10 ML VIAL INJ IV SCH ×2 (09:20→23:15)
[2020-07-21] MEDS: ASPirin 81 mg TAB PO SCH (09:21)
[2020-07-21] MEDS: CLOPIDOGREL BISULFATE 75 MG TAB PO SCH (09:21)
[2020-07-21 13:00] VITALS: BP 106/56
[2020-07-21] MEDS ORDERED: ENOXAPARIN SOD 60 MG/0.6 ML SYRINGE SC ONE (13:00)
[2020-07-21 16:58] LABS: Calcium 8.4 mg/dL (8.5-10.1); Potassium 3.7 mmol/L (3.5-5.1)
[2020-07-21 17:00] VITALS: BP 116/93
[2020-07-21 17:00] LABS: BUN/Creatinine Ratio 11.7
[2020-07-21 22:00] VITALS: BP 124/65
[2020-07-21] MEDS: ATORVASTATIN 20 MG TAB PO SCH (23:16)
[2020-07-21] MEDS: MORPHINE SULF INJ 2 MG/ML SYRINGE 1ML IV PRN (23:59)
[2020-07-22 05:00] VITALS: BP 116/63
[2020-07-22] MEDS: SUCRALFATE 1 GM/10 ML ORAL SUSP PO SCH ×3 (06:25→17:45)
[2020-07-22] MEDS: ACCU-CHEK COMFORT CURVE STRIP VI SCH ×4 (06:40→22:31)
[2020-07-22] MEDS: InsuLIN REG 1unit/0.01ml Soln (100units/ml) SC SCH ×4 (06:40→22:23)
[2020-07-22 09:00] VITALS: BP 101/56
[2020-07-22] MEDS: ASPirin 81 mg TAB PO SCH (10:00)
[2020-07-22] MEDS: CLOPIDOGREL BISULFATE 75 MG TAB PO SCH (10:00)
[2020-07-22] MEDS: VANCOMYCIN 750mg/250ml 250 ML IV SCH ×2 (10:49→18:35)
[2020-07-22] MEDS ORDERED: IODIXANOL 320MG/ML 100ML BTL IV ONE ×3 (11:53→16:17)
[2020-07-22] MEDS ORDERED: HEPARIN IN NS 1000Units/500mL 0 ML ONE (11:53)
[2020-07-22] MEDS ORDERED: LIDOCAINE 2%HCL (LOCAL ANESTH.) INJ 20ML MDV ONE ×2 (11:53→15:10)
[2020-07-22] MEDS: MORPHINE SULF INJ 2 MG/ML SYRINGE 1ML IV PRN ×2 (13:15→21:22)
[2020-07-22] MEDS ORDERED: fentaNYL CITRATE 100 MCG/2 ML VL ONE (15:24)
[2020-07-22] MEDS ORDERED: MIDAZOLAM HCL 1MG/1ML-2 ML VIAL ONE (15:24)
[2020-07-22] MEDS ORDERED: SODIUM CHL 0.9% 50 ML ONE (15:24)
[2020-07-22] MEDS ORDERED: ANGIOMAX 250 MG VIAL IV ONE (15:24)
[2020-07-22] MEDS: cefTRIAXone 1GM/50ML D5W 50 ML IV SCH (17:43)
[2020-07-22] MEDS: PANTOPRAZOLE 40 MG/10 ML VIAL INJ IV SCH ×2 (17:43→22:26)
[2020-07-22] MEDS: ONDANSETRON HCL 4 MG/2 ML VIAL IV PRN (21:21)
[2020-07-22 22:00] VITALS: BP 110/51
[2020-07-22] MEDS: ATORVASTATIN 20 MG TAB PO SCH (22:16)
[2020-07-23] MEDS: VANCOMYCIN 750mg/250ml 250 ML IV SCH (04:00)
[2020-07-23] MEDS ORDERED: VANCOMYCIN 1GM/250ML 250 ML IV ONE (04:28)
[2020-07-23 05:01] VITALS: BP 118/63
[2020-07-23] MEDS: SUCRALFATE 1 GM/10 ML ORAL SUSP PO SCH ×3 (06:27→17:17)
[2020-07-23] MEDS: InsuLIN REG 1unit/0.01ml Soln (100units/ml) SC SCH ×4 (06:27→21:44)
[2020-07-23] MEDS: ACCU-CHEK COMFORT CURVE STRIP VI SCH ×4 (06:29→21:24)
[2020-07-23] MEDS ORDERED: ceFAZolin 1GM VL ONE (06:58)
[2020-07-23] MEDS ORDERED: GLYCOPYRROLATE 0.2 MG/ML 1ML VIAL ONE (07:15)
[2020-07-23] MEDS ORDERED: fentaNYL CITRATE 100 MCG/2 ML VL ONE (07:15)
[2020-07-23] MEDS ORDERED: ONDANSETRON HCL 4 MG/2 ML VIAL ONE (07:15)
[2020-07-23] MEDS ORDERED: LIDOCAINE 2% (LOCAL ANESTH.) PF 5ml SDV ONE (07:15)
[2020-07-23] MEDS ORDERED: DexAMETHasone SOD PHOS 10MG/1ML VIAL INJ ONE (07:15)
[2020-07-23] MEDS ORDERED: PROPOFOL 10 MG/ML 20 ML IV ONE (07:15)
[2020-07-23] MEDS ORDERED: MIDAZOLAM HCL 1MG/1ML-2 ML VIAL ONE (07:15)
[2020-07-23] MEDS ORDERED: ceFAZolin 1GM/50ML 50 ML IV ONE (07:27)
[2020-07-23] MEDS ORDERED: HYDROmorphone HCL 2 MG/ML VL ONE (07:55)
[2020-07-23] MEDS ORDERED: ONDANSETRON HCL 4 MG/2 ML VIAL IV PRN (08:45)
[2020-07-23] MEDS ORDERED: ACCU-CHEK COMFORT CURVE STRIP VI ONE (08:45)
[2020-07-23] MEDS ORDERED: HYDROmorphone HCL 2 MG/ML VL IV PRN (08:45)
[2020-07-23 09:00] VITALS: BP 108/54
[2020-07-23] MEDS: cefTRIAXone 1GM/50ML D5W 50 ML IV SCH (11:03)
[2020-07-23] MEDS: PANTOPRAZOLE 40 MG/10 ML VIAL INJ IV SCH ×2 (11:03→21:24)
[2020-07-23 13:00] VITALS: BP 112/59
[2020-07-23] MEDS: VANCOMYCIN 1GM/250ML 250 ML IV SCH (14:29)
[2020-07-23 16:47] VITALS: BP 107/61
[2020-07-23] MEDS: ATORVASTATIN 20 MG TAB PO SCH (21:24)
[2020-07-23 22:00] VITALS: BP 104/54
[2020-07-24] MEDS: VANCOMYCIN 1GM/250ML 250 ML IV SCH ×3 (00:17→20:16)
[2020-07-24] MEDS: MORPHINE SULF INJ 2 MG/ML SYRINGE 1ML IV PRN ×4 (02:32→20:16)
[2020-07-24 05:00] VITALS: BP 116/64
[2020-07-24] MEDS: SUCRALFATE 1 GM/10 ML ORAL SUSP PO SCH ×3 (06:13→17:28)
[2020-07-24] MEDS: ACCU-CHEK COMFORT CURVE STRIP VI SCH ×4 (06:21→21:34)
[2020-07-24] MEDS: InsuLIN REG 1unit/0.01ml Soln (100units/ml) SC SCH ×4 (06:32→21:37)
[2020-07-24 08:40] VITALS: BP 109/53
[2020-07-24] MEDS: cefTRIAXone 1GM/50ML D5W 50 ML IV SCH (10:06)
[2020-07-24] MEDS: PANTOPRAZOLE 40 MG/10 ML VIAL INJ IV SCH ×2 (10:06→21:34)
[2020-07-24 13:00] VITALS: BP 115/61
[2020-07-24 16:42] VITALS: BP 112/66
[2020-07-24] MEDS: ATORVASTATIN 20 MG TAB PO SCH (21:34)
[2020-07-24 22:00] VITALS: BP 99/53
[2020-07-25] MEDS: MORPHINE SULF INJ 2 MG/ML SYRINGE 1ML IV PRN ×5 (02:08→21:32)
[2020-07-25 03:37] LABS: Eosinophils # (auto) 0.5 10 ^3/uL (0-0.8); Hemoglobin 10.9 g/dL (13.5-17.5); Lymphocytes # (auto) 1.3 10 ^3/uL (0.4-5.4); Lymphocytes % (auto) 14.2 % (10.0-50.0)
[2020-07-25 03:39] LABS: Basophils # (auto) 0.1 10 ^3/uL (0-0.2); Basophils % (auto) 0.9 % (0.0-2.0); Eosinophils % (auto) 5.9 % (0.0-7.0); Hematocrit 31.8 % (41.0-53.0); Mean Corpuscular Hemoglobin 26.5 pg (28.0-32.0); Mean Corpuscular Hgb Conc. 34.1 g/dL (32.0-36.0); Mean Corpuscular Volume 77.7 fL (80.0-100.0); Monocytes # (auto) 0.9 10 ^3/uL (0-1.3); Neutrophils # (auto) 6.3 10 ^3/uL (1.6-8.6); Nucleated Red Blood Cells % 0.1 %; Platelet Count (auto) 350 10^3/uL (140-450); Red Cell Distribution Width 15.1 % (11.8-14.3); White Blood Cell 9.2 10^3/uL (4.4-10.8)
[2020-07-25 04:37] LABS: BUN/Creatinine Ratio 16.9; Calcium 8.4 mg/dL (8.5-10.1); Potassium 4.3 mmol/L (3.5-5.1)
[2020-07-25 05:00] VITALS: BP 93/42
[2020-07-25] MEDS: SUCRALFATE 1 GM/10 ML ORAL SUSP PO SCH ×3 (06:10→17:40)
[2020-07-25] MEDS: ACCU-CHEK COMFORT CURVE STRIP VI SCH ×4 (06:10→21:32)
[2020-07-25] MEDS: InsuLIN REG 1unit/0.01ml Soln (100units/ml) SC SCH ×4 (06:11→22:29)
[2020-07-25 09:00] VITALS: BP 111/62
[2020-07-25] MEDS: cefTRIAXone 1GM/50ML D5W 50 ML IV SCH (09:25)
[2020-07-25] MEDS: VANCOMYCIN 1GM/250ML 250 ML IV SCH ×2 (10:18→23:11)
[2020-07-25] MEDS: PANTOPRAZOLE 40 MG/10 ML VIAL INJ IV SCH ×2 (10:18→21:32)
[2020-07-25 13:00] VITALS: BP 117/64
[2020-07-25] MEDS: ATORVASTATIN 20 MG TAB PO SCH (21:32)
[2020-07-25 22:00] VITALS: BP 110/60
[2020-07-26] MEDS: MORPHINE SULF INJ 2 MG/ML SYRINGE 1ML IV PRN ×3 (02:35→23:02)
[2020-07-26 05:10] VITALS: BP 105/54
[2020-07-26] MEDS: SUCRALFATE 1 GM/10 ML ORAL SUSP PO SCH ×3 (06:50→16:33)
[2020-07-26] MEDS: ACCU-CHEK COMFORT CURVE STRIP VI SCH ×4 (06:50→22:00)
[2020-07-26] MEDS: InsuLIN REG 1unit/0.01ml Soln (100units/ml) SC SCH ×4 (06:57→22:45)
[2020-07-26 09:12] VITALS: BP 101/40
[2020-07-26 10:53] LABS: Basophils # (auto) 0.1 10 ^3/uL (0-0.2); Eosinophils # (auto) 0.6 10 ^3/uL (0-0.8); Hemoglobin 11.6 g/dL (13.5-17.5); Lymphocytes # (auto) 1.3 10 ^3/uL (0.4-5.4); Neutrophils # (auto) 7.8 10 ^3/uL (1.6-8.6)
[2020-07-26 10:57] LABS: Eosinophils % (auto) 5.5 % (0.0-7.0); Hematocrit 33.7 % (41.0-53.0); Lymphocytes % (auto) 11.8 % (10.0-50.0); Mean Corpuscular Hemoglobin 26.8 pg (28.0-32.0); Mean Corpuscular Hgb Conc. 34.5 g/dL (32.0-36.0); Mean Corpuscular Volume 77.7 fL (80.0-100.0); Monocytes % (auto) 9.3 % (0.0-12.0); Neutrophils % (auto) 72.4 % (37.0-80.0); Nucleated Red Blood Cells % 0.1 %; Platelet Count (auto) 434 10^3/uL (140-450); Red Blood Cells 4.33 10^6/uL (4.5-5.90); Red Cell Distribution Width 15.4 % (11.8-14.3); White Blood Cell 10.8 10^3/uL (4.4-10.8)
[2020-07-26 11:02] LABS: Potassium 4.4 mmol/L (3.5-5.1)
[2020-07-26 11:06] LABS: BUN/Creatinine Ratio 14.5
[2020-07-26] MEDS: PANTOPRAZOLE 40 MG/10 ML VIAL INJ IV SCH ×2 (11:28→22:45)
[2020-07-26] MEDS: cefTRIAXone 1GM/50ML D5W 50 ML IV SCH (11:29)
[2020-07-26] MEDS: predniSONE 20 MG TAB PO SCH (12:10)
[2020-07-26 13:10] VITALS: BP 113/67
[2020-07-26] MEDS: VANCOMYCIN 1GM/250ML 250 ML IV SCH (14:10)
[2020-07-26] MEDS: diphenhdrAMINE HCL 50 MG/1 ML VL IV SCH ×2 (14:11→22:45)
[2020-07-26] MEDS: DOCUSATE SOD 100 MG CAP PO SCH ×2 (15:45→19:41)
[2020-07-26 17:13] VITALS: BP 111/56
[2020-07-26 22:00] VITALS: BP 104/64
[2020-07-26] MEDS: ATORVASTATIN 20 MG TAB PO SCH (22:00)
[2020-07-27] MEDS: VANCOMYCIN 1GM/250ML 250 ML IV SCH ×2 (04:04→17:41)
[2020-07-27 05:00] VITALS: BP 105/67
[2020-07-27] MEDS: diphenhdrAMINE HCL 50 MG/1 ML VL IV SCH ×3 (05:46→21:23)
[2020-07-27] MEDS: MORPHINE SULF INJ 2 MG/ML SYRINGE 1ML IV PRN ×4 (05:46→21:34)
[2020-07-27] MEDS: InsuLIN REG 1unit/0.01ml Soln (100units/ml) SC SCH ×4 (06:46→21:24)
[2020-07-27] MEDS: ACCU-CHEK COMFORT CURVE STRIP VI SCH ×4 (06:54→21:24)
[2020-07-27] MEDS: SUCRALFATE 1 GM/10 ML ORAL SUSP PO SCH ×3 (06:54→16:51)
[2020-07-27 08:53] VITALS: BP 110/61
[2020-07-27] MEDS: DOCUSATE SOD 100 MG CAP PO SCH ×3 (10:00→21:24)
[2020-07-27] MEDS: predniSONE 20 MG TAB PO SCH (10:20)
[2020-07-27] MEDS: PANTOPRAZOLE 40 MG/10 ML VIAL INJ IV SCH ×2 (10:20→21:24)
[2020-07-27] MEDS: cefTRIAXone 1GM/50ML D5W 50 ML IV SCH (10:20)
[2020-07-27 13:16] VITALS: BP 129/70
[2020-07-27 16:50] VITALS: BP 105/59
[2020-07-27] MEDS: ATORVASTATIN 20 MG TAB PO SCH (21:24)
[2020-07-27 22:00] VITALS: BP 118/63
[2020-07-28 05:00] VITALS: BP 130/65
[2020-07-28] MEDS: InsuLIN REG 1unit/0.01ml Soln (100units/ml) SC SCH ×3 (06:15→17:06)
[2020-07-28] MEDS: ACCU-CHEK COMFORT CURVE STRIP VI SCH ×3 (06:15→17:06)
[2020-07-28] MEDS: SUCRALFATE 1 GM/10 ML ORAL SUSP PO SCH ×3 (06:15→17:04)
[2020-07-28] MEDS: diphenhdrAMINE HCL 50 MG/1 ML VL IV SCH ×2 (06:15→13:57)
[2020-07-28] MEDS: VANCOMYCIN 1GM/250ML 250 ML IV SCH (08:33)
[2020-07-28 08:42] VITALS: BP 135/86
[2020-07-28] MEDS: PANTOPRAZOLE 40 MG/10 ML VIAL INJ IV SCH (10:10)
[2020-07-28] MEDS: cefTRIAXone 1GM/50ML D5W 50 ML IV SCH (10:10)
[2020-07-28] MEDS: DOCUSATE SOD 100 MG CAP PO SCH (10:10)
[2020-07-28] MEDS: predniSONE 20 MG TAB PO SCH (10:10)
[2020-07-28 12:42] VITALS: BP 120/84
[2020-07-28] MEDS: MORPHINE SULF INJ 2 MG/ML SYRINGE 1ML IV PRN (14:27)
[2020-07-28 16:42] VITALS: BP 124/82
== END 2020-07-28 19:47 | disposition home health service (06) | DRG 240 ==
LOC: ER 08:41 → TELE 08:42 → TELE-CENTR 18:15
PROVIDERS: ADMIT Nurse Practitioner Acute Care; ATTEND Family Medicine
PROC: 047K3ZZ Dilation of Right Femoral Artery, Percutaneous Approach (ICD-10-PCS; 2020-07-15)
PROC: 05HY33Z Insertion of Infusion Device into Upper Vein, Percutaneous Approach (ICD-10-PCS; 2020-07-20)
PROC: 047U3ZZ Dilation of Left Peroneal Artery, Percutaneous Approach (ICD-10-PCS; 2020-07-22)
PROC: 0Y6X0Z0 Detachment at Right 5th Toe, Complete, Open Approach (ICD-10-PCS; 2020-07-23)
PROC: 0Y6N0ZB Detachment at Left Foot, Partial 2nd Ray, Open Approach (ICD-10-PCS; 2020-07-23)
PROC: 0Y6N0ZC Detachment at Left Foot, Partial 3rd Ray, Open Approach (ICD-10-PCS; 2020-07-23)
PROC: 0Y6N0ZD Detachment at Left Foot, Partial 4th Ray, Open Approach (ICD-10-PCS; 2020-07-23)
PROC: 0Y6N0ZF Detachment at Left Foot, Partial 5th Ray, Open Approach (ICD-10-PCS; 2020-07-23)
PROC: 0Y6N0Z9 Detachment at Left Foot, Partial 1st Ray, Open Approach (ICD-10-PCS; principal; 2020-07-23 07:37)
DX: E11.52 Type 2 diabetes mellitus with diabetic peripheral angiopathy with gangrene (principal); I70.92 Chronic total occlusion of artery of the extremities; L03.115 Cellulitis of right lower limb; L03.116 Cellulitis of left lower limb; M86.8X7 Other osteomyelitis, ankle and foot; Z20.822 Contact with and (suspected) exposure to COVID-19; E11.69 Type 2 diabetes mellitus with other specified complication; E11.21 Type 2 diabetes mellitus with diabetic nephropathy; E11.40 Type 2 diabetes mellitus with diabetic neuropathy, unspecified; E11.621 Type 2 diabetes mellitus with foot ulcer; E78.00 Pure hypercholesterolemia, unspecified; E78.5 Hyperlipidemia, unspecified; L97.519 Non-pressure chronic ulcer of other part of right foot with unspecified severity; F17.210 Nicotine dependence, cigarettes, uncomplicated; I10 Essential (primary) hypertension; F32.9 Major depressive disorder, single episode, unspecified; I70.203 Unspecified atherosclerosis of native arteries of extremities, bilateral legs; I70.8 Atherosclerosis of other arteries; I99.8 Other disorder of circulatory system; L97.529 Non-pressure chronic ulcer of other part of left foot with unspecified severity; Z79.02 Long term (current) use of antithrombotics/antiplatelets; Z79.82 Long term (current) use of aspirin; Z79.899 Other long term (current) drug therapy; Z82.49 Family history of ischemic heart disease and other diseases of the circulatory system; Z83.3 Family history of diabetes mellitus; Z86.73 Personal history of transient ischemic attack (TIA), and cerebral infarction without residual deficits; Z79.84 Long term (current) use of oral hypoglycemic drugs
CPT/HCPCS: 36415; 36569; 71045; 73700; 80048; 80053; 80202; 81001; 82565; 82962; 83036; 84484; 85025; 85610; 85730; 87040; 87070; 87075; 87205; 87426; 93005; 93306; 93926; 96365; 99152; 99153; C1769; C9113; G0378; J0690; J0696; J1100; J1815; J2001; J2250; J2405; J2543; J2704; J7042; Q9967

== ENCOUNTER 2020-08-26 12:46 | Inpatient (IN) | payer BC ==
[~2020-08-26] VITALS: Ht 172.7 cm; Wt 72.7 kg
[~2020-08-26 12:46] MED LIST changes: +FINA5TAB4 PO; +INSU1INJ5 SC; +LACT10SO3 PO; -LEVEMIR SC; -METF-490 PO; +METF-929 PO; +OMEP-260 PO
[2020-08-26] MEDS ORDERED: SODIUM CHLORIDE 0.9% 1,000 ML IV ONE (13:00)
[2020-08-26] MEDS ORDERED: PIPERACILLIN-TAZOB 3.375GM 100 ML IV ONE (13:00)
[2020-08-26 13:46] LABS: Eosinophils # (auto) 0.2 10 ^3/uL (0-0.8); Hemoglobin 11.4 g/dL (13.5-17.5); Lymphocytes # (auto) 1.4 10 ^3/uL (0.4-5.4); Monocytes # (auto) 0.8 10 ^3/uL (0-1.3)
[2020-08-26 13:48] LABS: Basophils # (auto) 0 10 ^3/uL (0-0.2); Basophils % (auto) 0.4 % (0.0-2.0); Eosinophils % (auto) 1.9 % (0.0-7.0); Hematocrit 33.9 % (41.0-53.0); Lymphocytes % (auto) 11.8 % (10.0-50.0); Mean Corpuscular Hemoglobin 26.3 pg (28.0-32.0); Mean Corpuscular Hgb Conc. 33.5 g/dL (32.0-36.0); Mean Corpuscular Volume 78.5 fL (80.0-100.0); Monocytes % (auto) 6.9 % (0.0-12.0); Neutrophils # (auto) 9.2 10 ^3/uL (1.6-8.6); Platelet Count (auto) 447 10^3/uL (140-450); Red Blood Cells 4.32 10^6/uL (4.5-5.90); Red Cell Distribution Width 16.4 % (11.8-14.3); White Blood Cell 11.7 10^3/uL (4.4-10.8)
[2020-08-26 14:04] LABS: INR 1.04 (0.9-1.15); Partial Thromboplastin Time 37.3 sec (23.0-31.2)
[2020-08-26 14:05] LABS: Albumin 2.8 g/dL (3.4-5.0); Anion Gap 8 (5-15); Blood Urea Nitrogen 11 mg/dL (7-18); Calcium 8.9 mg/dL (8.5-10.1); Carbon Dioxide 25 mmol/L (21-32); Chloride 103 mmol/L (98-107); Glucose 189 mg/dL (74-106); Potassium 4.4 mmol/L (3.5-5.1); Sodium 136 mmol/L (136-145)
[2020-08-26 14:12] LABS: Alanine Aminotransferase 19 U/L (16-61); Alkaline Phosphatase 83 U/L (45-117); Aspartate Aminotransferase 11 U/L (15-37); BUN/Creatinine Ratio 14.5; Bilirubin, Total 0.3 mg/dL (0.2-1.0); GFR African American 133 mL/min; GFR Non-African American 110 mL/min; Total Protein 7.6 g/dL (6.4-8.2)
[2020-08-26] MEDS ORDERED: HYDROcodone-ACET 5/325MG TAB PO PRN (16:00)
[2020-08-26] MEDS ORDERED: ACETAMINOPHEN 500 MG TAB PO PRN (16:00)
[2020-08-26] MEDS ORDERED: MORPHINE SULF INJ 2 MG/ML SYRINGE 1ML IV PRN (16:00)
[2020-08-26] MEDS ORDERED: DEXTROSE (50%) 50ML SYRG IV PRN (16:00)
[2020-08-26] MEDS ORDERED: VANCOMYCIN PER PHARMACY 0 MG IV SCH (16:00)
[2020-08-26] MEDS ORDERED: DOCUSATE SOD 100 MG CAP PO PRN (16:00)
[2020-08-26] MEDS ORDERED: NITROGLYCERIN 0.4 MG SL TAB SL PRN (16:00)
[2020-08-26] MEDS ORDERED: VANCOMYCIN 1GM/250ML 250 ML IV ONE (16:30)
[2020-08-26] MEDS: MORPHINE SULF INJ 2 MG/ML SYRINGE 1ML IV PRN ×2 (16:35→21:53)
[2020-08-26] MEDS: ONDANSETRON HCL 4 MG/2 ML VIAL IV PRN ×2 (16:35→21:53)
[2020-08-26] MEDS: ACCU-CHEK COMFORT CURVE STRIP VI SCH ×2 (17:59→21:54)
[2020-08-26] MEDS: InsuLIN REG 1unit/0.01ml Soln (100units/ml) SC SCH ×2 (18:02→21:54)
[2020-08-26 19:06] LABS: Urine Amorphous Crystal FEW /hpf (None Seen); Urine Bacteria NONE SEEN /hpf (None Seen); Urine Blood 1+ /uL (Negative); Urine Mucus FEW (None Seen); Urine Specific Gravity 1.021 (1.001-1.035); Urine WBC 3 /hpf (0 - 3)
[2020-08-26] MEDS: AMITRIPTYLINE HCL 25 MG TAB PO SCH (21:54)
[2020-08-26] MEDS: metroNIDAZOLE 500MG/100ML 100 ML IV SCH (23:11)
[2020-08-27 01:11] VITALS: BP 106/52
[2020-08-27] MEDS: MORPHINE SULF INJ 2 MG/ML SYRINGE 1ML IV PRN ×4 (01:57→20:16)
[2020-08-27 04:42] VITALS: BP 121/73
[2020-08-27] MEDS: metroNIDAZOLE 500MG/100ML 100 ML IV SCH ×3 (05:24→21:14)
[2020-08-27] MEDS: AMITRIPTYLINE HCL 25 MG TAB PO SCH ×3 (05:30→21:16)
[2020-08-27] MEDS: ACCU-CHEK COMFORT CURVE STRIP VI SCH ×4 (06:17→21:16)
[2020-08-27] MEDS: INSULIN LANTUS (GLARGINE) 1 /0.01ml (100units/ml) SC SCH (06:17)
[2020-08-27] MEDS: InsuLIN REG 1unit/0.01ml Soln (100units/ml) SC SCH ×4 (06:17→21:25)
[2020-08-27 09:00] VITALS: BP 115/66
[2020-08-27] MEDS: cefTRIAXone 1GM/50ML D5W 50 ML IV SCH (09:00)
[2020-08-27] MEDS: LINEZOLID 600MG/300ML 300 ML IV SCH ×2 (09:48→21:14)
[2020-08-27] MEDS: FAMOTIDINE 20 MG TAB PO SCH (09:49)
[2020-08-27] MEDS: FINASTERIDE 5 MG TAB PO SCH (09:49)
[2020-08-27 16:46] VITALS: BP 115/74
[2020-08-27] MEDS: ONDANSETRON HCL 4 MG/2 ML VIAL IV PRN (20:16)
[2020-08-27 22:00] VITALS: BP 103/61
[2020-08-28 05:15] VITALS: BP 118/60
[2020-08-28] MEDS: AMITRIPTYLINE HCL 25 MG TAB PO SCH ×3 (05:23→21:16)
[2020-08-28] MEDS: metroNIDAZOLE 500MG/100ML 100 ML IV SCH ×3 (05:23→21:21)
[2020-08-28] MEDS: InsuLIN REG 1unit/0.01ml Soln (100units/ml) SC SCH ×4 (05:24→21:18)
[2020-08-28] MEDS: ACCU-CHEK COMFORT CURVE STRIP VI SCH ×4 (05:24→21:15)
[2020-08-28] MEDS: INSULIN LANTUS (GLARGINE) 1 /0.01ml (100units/ml) SC SCH (06:30)
[2020-08-28 08:59] VITALS: BP 121/68
[2020-08-28] MEDS: cefTRIAXone 1GM/50ML D5W 50 ML IV SCH (09:00)
[2020-08-28] MEDS: FINASTERIDE 5 MG TAB PO SCH (09:47)
[2020-08-28] MEDS: FAMOTIDINE 20 MG TAB PO SCH (09:47)
[2020-08-28] MEDS: LINEZOLID 600MG/300ML 300 ML IV SCH ×2 (09:49→22:40)
[2020-08-28 13:30] VITALS: BP 110/56
[2020-08-28 16:55] VITALS: BP 115/60
[2020-08-28] MEDS: MORPHINE SULF INJ 2 MG/ML SYRINGE 1ML IV PRN (21:21)
[2020-08-28 22:00] VITALS: BP 112/64
[2020-08-29 05:00] VITALS: BP 95/50
[2020-08-29] MEDS: AMITRIPTYLINE HCL 25 MG TAB PO SCH ×3 (06:00→21:11)
[2020-08-29] MEDS: metroNIDAZOLE 500MG/100ML 100 ML IV SCH ×3 (06:21→21:10)
[2020-08-29] MEDS: InsuLIN REG 1unit/0.01ml Soln (100units/ml) SC SCH ×4 (06:21→21:23)
[2020-08-29] MEDS: INSULIN LANTUS (GLARGINE) 1 /0.01ml (100units/ml) SC SCH (06:23)
[2020-08-29] MEDS: ACCU-CHEK COMFORT CURVE STRIP VI SCH ×4 (06:23→21:11)
[2020-08-29 09:00] VITALS: BP 116/62
[2020-08-29] MEDS: cefTRIAXone 1GM/50ML D5W 50 ML IV SCH (09:43)
[2020-08-29] MEDS: LINEZOLID 600MG/300ML 300 ML IV SCH ×2 (11:15→21:11)
[2020-08-29] MEDS: FAMOTIDINE 20 MG TAB PO SCH (11:15)
[2020-08-29] MEDS: FINASTERIDE 5 MG TAB PO SCH (11:16)
[2020-08-29] MEDS: NICOTINE 21MG/24 HR TOPICAL PATCH TD SCH (11:16)
[2020-08-29 13:00] VITALS: BP 110/59
[2020-08-29] MEDS: MORPHINE SULF INJ 2 MG/ML SYRINGE 1ML IV PRN ×2 (15:01→21:23)
[2020-08-29] MEDS: CEFEPIME 1 GM in SODIUM CHL 0.9% 50 ML IV SCH ×2 (16:29→22:21)
[2020-08-29 21:57] VITALS: BP 119/63
[2020-08-30 05:00] VITALS: BP 97/49
[2020-08-30] MEDS: metroNIDAZOLE 500MG/100ML 100 ML IV SCH ×3 (05:26→21:16)
[2020-08-30] MEDS: CEFEPIME 1 GM in SODIUM CHL 0.9% 50 ML IV SCH ×3 (05:27→22:43)
[2020-08-30] MEDS: AMITRIPTYLINE HCL 25 MG TAB PO SCH ×3 (05:27→21:16)
[2020-08-30] MEDS: InsuLIN REG 1unit/0.01ml Soln (100units/ml) SC SCH ×4 (05:58→21:19)
[2020-08-30] MEDS: ACCU-CHEK COMFORT CURVE STRIP VI SCH ×4 (05:58→21:17)
[2020-08-30] MEDS: INSULIN LANTUS (GLARGINE) 1 /0.01ml (100units/ml) SC SCH (06:00)
[2020-08-30 09:00] VITALS: BP 148/61
[2020-08-30] MEDS: NICOTINE 21MG/24 HR TOPICAL PATCH TD SCH (10:26)
[2020-08-30] MEDS: FAMOTIDINE 20 MG TAB PO SCH (10:26)
[2020-08-30] MEDS: LINEZOLID 600MG/300ML 300 ML IV SCH ×2 (10:27→21:16)
[2020-08-30] MEDS: FINASTERIDE 5 MG TAB PO SCH (10:28)
[2020-08-30] MEDS: MORPHINE SULF INJ 2 MG/ML SYRINGE 1ML IV PRN ×2 (12:06→21:17)
[2020-08-30 13:01] VITALS: BP 121/61
[2020-08-30 17:00] VITALS: BP 98/50
[2020-08-30 22:00] VITALS: BP 117/59
[2020-08-31 05:00] VITALS: BP 116/86
[2020-08-31] MEDS: metroNIDAZOLE 500MG/100ML 100 ML IV SCH ×3 (05:21→21:30)
[2020-08-31] MEDS: CEFEPIME 1 GM in SODIUM CHL 0.9% 50 ML IV SCH ×2 (05:22→16:28)
[2020-08-31] MEDS: AMITRIPTYLINE HCL 25 MG TAB PO SCH ×3 (05:22→22:30)
[2020-08-31] MEDS: InsuLIN REG 1unit/0.01ml Soln (100units/ml) SC SCH ×4 (06:10→23:03)
[2020-08-31] MEDS: ACCU-CHEK COMFORT CURVE STRIP VI SCH ×4 (06:10→22:49)
[2020-08-31] MEDS: INSULIN LANTUS (GLARGINE) 1 /0.01ml (100units/ml) SC SCH (06:11)
[2020-08-31 08:00] VITALS: BP 107/58
[2020-08-31] MEDS: NICOTINE 21MG/24 HR TOPICAL PATCH TD SCH (10:00)
[2020-08-31] MEDS: FINASTERIDE 5 MG TAB PO SCH (11:55)
[2020-08-31] MEDS: FAMOTIDINE 20 MG TAB PO SCH (11:55)
[2020-08-31] MEDS: LINEZOLID 600MG/300ML 300 ML IV SCH ×2 (11:56→22:49)
[2020-08-31 12:00] VITALS: BP 107/65
[2020-08-31 16:00] VITALS: BP 113/63
[2020-08-31 21:45] VITALS: BP 101/48
[2020-08-31] MEDS: MORPHINE SULF INJ 2 MG/ML SYRINGE 1ML IV PRN (22:48)
[2020-09-01] VITALS (10 sets, daily range): BP systolic 105–143; BP diastolic 50–73
[2020-09-01] MEDS: CEFEPIME 1 GM in SODIUM CHL 0.9% 50 ML IV SCH ×3 (00:35→11:48)
[2020-09-01] MEDS: metroNIDAZOLE 500MG/100ML 100 ML IV SCH ×3 (05:56→20:28)
[2020-09-01] MEDS: AMITRIPTYLINE HCL 25 MG TAB PO SCH ×3 (05:56→22:31)
[2020-09-01] MEDS: InsuLIN REG 1unit/0.01ml Soln (100units/ml) SC SCH ×4 (06:25→22:37)
[2020-09-01] MEDS: ACCU-CHEK COMFORT CURVE STRIP VI SCH ×4 (06:28→22:32)
[2020-09-01] MEDS: INSULIN LANTUS (GLARGINE) 1 /0.01ml (100units/ml) SC SCH (06:28)
[2020-09-01] MEDS ORDERED: PHENYLEPHRINE HCL 10 MG/ML VL IV ONE (08:05)
[2020-09-01] MEDS ORDERED: DexAMETHasone SOD PHOS 10MG/1ML VIAL INJ IV ONE (08:05)
[2020-09-01] MEDS ORDERED: ceFAZolin 1GM/50ML 50 ML IV ONE (08:06)
[2020-09-01] MEDS ORDERED: TETRACAINE 1% INJ 2 ML VIAL IJ ONE (08:08)
[2020-09-01] MEDS ORDERED: MORPHINE SULF(PF) 0.5MG/ML 10ML VIAL ONE (08:17)
[2020-09-01] MEDS ORDERED: fentaNYL CITRATE 100 MCG/2 ML VL ONE (08:17)
[2020-09-01] MEDS ORDERED: MIDAZOLAM HCL 1MG/1ML-2 ML VIAL ONE ×2 (08:18→08:44)
[2020-09-01] MEDS ORDERED: PROPOFOL 10 MG/ML 20 ML IV ONE (08:44)
[2020-09-01] MEDS ORDERED: NALBUPHINE HCL 10 MG/1ml INJECTION SUBCUT ONE (09:15)
[2020-09-01] MEDS ORDERED: ePHEDrine SULFATE 50 MG/ML AMP IV PRN (09:15)
[2020-09-01] MEDS ORDERED: MIDAZOLAM HCL 1MG/1ML-2 ML VIAL IV PRN (09:15)
[2020-09-01] MEDS ORDERED: diphenhdrAMINE HCL 50 MG/1 ML VL IV PRN (09:15)
[2020-09-01] MEDS ORDERED: NALOXONE HCL 0.4 MG/ML VIAL IV PRN (09:15)
[2020-09-01] MEDS ORDERED: HYDROmorphone HCL 2 MG/ML VL IV PRN (09:15)
[2020-09-01] MEDS ORDERED: DexAMETHasone SOD PHOS 10MG/1ML VIAL INJ IV PRN (09:15)
[2020-09-01] MEDS ORDERED: ONDANSETRON HCL 4 MG/2 ML VIAL IV PRN (09:15)
[2020-09-01] MEDS ORDERED: LABETALOL HCL 5 MG/ML 4ML SYRINGE IV PRN (09:15)
[2020-09-01] MEDS ORDERED: POVIDONE IODINE 10 % TOPICAL OINT 30GM TOP ONE (09:55)
[2020-09-01] MEDS: LINEZOLID 600MG/300ML 300 ML IV SCH ×2 (10:00→22:32)
[2020-09-01] MEDS: FAMOTIDINE 20 MG TAB PO SCH (11:49)
[2020-09-01] MEDS: NICOTINE 21MG/24 HR TOPICAL PATCH TD SCH (11:49)
[2020-09-01] MEDS: FINASTERIDE 5 MG TAB PO SCH (11:50)
[2020-09-01] MEDS: MORPHINE SULF INJ 2 MG/ML SYRINGE 1ML IV PRN ×2 (12:00→20:28)
[2020-09-01] MEDS: KETOROLAC TROMETH 30 MG/ML 1ML VIAL IV PRN (13:26)
[2020-09-02] VITALS (12 sets, daily range): BP systolic 115–147; BP diastolic 50–77
[2020-09-02] MEDS: CEFEPIME 1 GM in SODIUM CHL 0.9% 50 ML IV SCH ×3 (00:49→16:45)
[2020-09-02] MEDS: AMITRIPTYLINE HCL 25 MG TAB PO SCH ×4 (06:00→23:09)
[2020-09-02] MEDS: ACCU-CHEK COMFORT CURVE STRIP VI SCH ×4 (06:37→22:30)
[2020-09-02] MEDS: metroNIDAZOLE 500MG/100ML 100 ML IV SCH (06:37)
[2020-09-02] MEDS: KETOROLAC TROMETH 30 MG/ML 1ML VIAL IV PRN ×2 (06:37→20:29)
[2020-09-02] MEDS: InsuLIN REG 1unit/0.01ml Soln (100units/ml) SC SCH ×4 (06:45→22:40)
[2020-09-02] MEDS: INSULIN LANTUS (GLARGINE) 1 /0.01ml (100units/ml) SC SCH (07:39)
[2020-09-02] MEDS: LINEZOLID 600MG/300ML 300 ML IV SCH ×2 (09:25→22:30)
[2020-09-02] MEDS: FAMOTIDINE 20 MG TAB PO SCH (09:26)
[2020-09-02] MEDS: FINASTERIDE 5 MG TAB PO SCH (09:26)
[2020-09-02] MEDS: NICOTINE 21MG/24 HR TOPICAL PATCH TD SCH (09:27)
[2020-09-02] MEDS: MORPHINE SULF INJ 2 MG/ML SYRINGE 1ML IV PRN ×2 (12:06→22:42)
[2020-09-03] MEDS: CEFEPIME 1 GM in SODIUM CHL 0.9% 50 ML IV SCH ×4 (00:14→23:25)
[2020-09-03 05:15] VITALS: BP 125/64
[2020-09-03] MEDS: MORPHINE SULF INJ 2 MG/ML SYRINGE 1ML IV PRN ×4 (05:42→20:22)
[2020-09-03] MEDS: AMITRIPTYLINE HCL 25 MG TAB PO SCH ×4 (06:00→21:05)
[2020-09-03] MEDS: InsuLIN REG 1unit/0.01ml Soln (100units/ml) SC SCH ×4 (07:00→21:55)
[2020-09-03] MEDS: INSULIN LANTUS (GLARGINE) 1 /0.01ml (100units/ml) SC SCH (07:00)
[2020-09-03] MEDS: ACCU-CHEK COMFORT CURVE STRIP VI SCH ×4 (07:14→21:54)
[2020-09-03] MEDS: FAMOTIDINE 20 MG TAB PO SCH (08:38)
[2020-09-03] MEDS: NICOTINE 21MG/24 HR TOPICAL PATCH TD SCH (08:39)
[2020-09-03] MEDS: FINASTERIDE 5 MG TAB PO SCH (08:40)
[2020-09-03] MEDS: KETOROLAC TROMETH 30 MG/ML 1ML VIAL IV PRN (08:41)
[2020-09-03 08:45] VITALS: BP 133/60
[2020-09-03] MEDS: LINEZOLID 600MG/300ML 300 ML IV SCH ×2 (11:16→21:04)
[2020-09-03 12:47] VITALS: BP 133/68
[2020-09-03 16:46] VITALS: BP 115/47
[2020-09-03 21:53] VITALS: BP 136/67
[2020-09-04 04:08] VITALS: BP 111/51
[2020-09-04] MEDS: MORPHINE SULF INJ 2 MG/ML SYRINGE 1ML IV PRN ×4 (04:15→21:15)
[2020-09-04] MEDS: AMITRIPTYLINE HCL 25 MG TAB PO SCH ×3 (05:26→21:16)
[2020-09-04] MEDS: InsuLIN REG 1unit/0.01ml Soln (100units/ml) SC SCH ×4 (06:17→22:00)
[2020-09-04] MEDS: INSULIN LANTUS (GLARGINE) 1 /0.01ml (100units/ml) SC SCH (06:17)
[2020-09-04] MEDS: ACCU-CHEK COMFORT CURVE STRIP VI SCH ×4 (06:18→22:14)
[2020-09-04 08:45] VITALS: BP 138/78
[2020-09-04] MEDS: CEFEPIME 1 GM in SODIUM CHL 0.9% 50 ML IV SCH (08:59)
[2020-09-04] MEDS: NICOTINE 21MG/24 HR TOPICAL PATCH TD SCH (09:03)
[2020-09-04] MEDS: FAMOTIDINE 20 MG TAB PO SCH (09:04)
[2020-09-04] MEDS: FINASTERIDE 5 MG TAB PO SCH (09:05)
[2020-09-04] MEDS: LINEZOLID 600MG/300ML 300 ML IV SCH (10:02)
[2020-09-04 13:00] VITALS: BP 129/57
[2020-09-04] MEDS ORDERED: levoFLOXacin 750MG 150 ML IV ONE (16:00)
[2020-09-04 21:52] VITALS: BP 135/81
[2020-09-05] MEDS: MORPHINE SULF INJ 2 MG/ML SYRINGE 1ML IV PRN ×4 (01:55→22:28)
[2020-09-05 05:00] VITALS: BP 113/63
[2020-09-05] MEDS: AMITRIPTYLINE HCL 25 MG TAB PO SCH ×3 (05:46→22:28)
[2020-09-05] MEDS: ACCU-CHEK COMFORT CURVE STRIP VI SCH ×4 (06:31→22:06)
[2020-09-05] MEDS: INSULIN LANTUS (GLARGINE) 1 /0.01ml (100units/ml) SC SCH (06:32)
[2020-09-05] MEDS: InsuLIN REG 1unit/0.01ml Soln (100units/ml) SC SCH ×4 (06:33→22:00)
[2020-09-05 09:21] VITALS: BP 118/64
[2020-09-05] MEDS ORDERED: levoFLOXacin 750MG 150 ML IV SCH (10:00)
[2020-09-05] MEDS: FINASTERIDE 5 MG TAB PO SCH (10:29)
[2020-09-05] MEDS: levoFLOXacin 250 MG TAB PO SCH (10:29)
[2020-09-05] MEDS: FAMOTIDINE 20 MG TAB PO SCH (10:29)
[2020-09-05] MEDS: NICOTINE 21MG/24 HR TOPICAL PATCH TD SCH (10:30)
[2020-09-05] MEDS: LINEZOLID 600MG TABLET PO SCH ×2 (11:36→22:28)
[2020-09-05 13:00] VITALS: BP 111/62
[2020-09-05 16:32] VITALS: BP 120/67
[2020-09-05 22:00] VITALS: BP 116/63
[2020-09-06 04:53] VITALS: BP 119/66
[2020-09-06] MEDS: ACCU-CHEK COMFORT CURVE STRIP VI SCH ×4 (05:45→21:53)
[2020-09-06] MEDS: InsuLIN REG 1unit/0.01ml Soln (100units/ml) SC SCH ×4 (05:45→21:53)
[2020-09-06] MEDS: AMITRIPTYLINE HCL 25 MG TAB PO SCH ×3 (06:00→21:53)
[2020-09-06] MEDS: INSULIN LANTUS (GLARGINE) 1 /0.01ml (100units/ml) SC SCH (06:29)
[2020-09-06] MEDS: MORPHINE SULF INJ 2 MG/ML SYRINGE 1ML IV PRN ×3 (06:30→20:28)
[2020-09-06 08:18] VITALS: BP 107/61
[2020-09-06] MEDS: NICOTINE 21MG/24 HR TOPICAL PATCH TD SCH (11:14)
[2020-09-06] MEDS: LINEZOLID 600MG TABLET PO SCH ×2 (11:14→21:53)
[2020-09-06] MEDS: levoFLOXacin 250 MG TAB PO SCH (11:14)
[2020-09-06] MEDS: FAMOTIDINE 20 MG TAB PO SCH (11:14)
[2020-09-06] MEDS: FINASTERIDE 5 MG TAB PO SCH (11:15)
[2020-09-06 12:13] VITALS: BP 106/48
[2020-09-06 16:13] VITALS: BP 99/57
[2020-09-06 16:54] VITALS: BP 114/59
[2020-09-06 22:00] VITALS: BP 110/52
[2020-09-07 05:00] VITALS: BP 95/51
[2020-09-07] MEDS: AMITRIPTYLINE HCL 25 MG TAB PO SCH ×3 (06:08→22:12)
[2020-09-07] MEDS: MORPHINE SULF INJ 2 MG/ML SYRINGE 1ML IV PRN ×3 (06:19→20:14)
[2020-09-07] MEDS: INSULIN LANTUS (GLARGINE) 1 /0.01ml (100units/ml) SC SCH (06:20)
[2020-09-07] MEDS: InsuLIN REG 1unit/0.01ml Soln (100units/ml) SC SCH ×4 (06:20→22:13)
[2020-09-07] MEDS: ACCU-CHEK COMFORT CURVE STRIP VI SCH ×4 (06:21→22:13)
[2020-09-07 08:00] VITALS: BP 91/56
[2020-09-07 08:48] VITALS: BP 99/58
[2020-09-07] MEDS: levoFLOXacin 250 MG TAB PO SCH (11:20)
[2020-09-07] MEDS: LINEZOLID 600MG TABLET PO SCH ×2 (11:20→22:13)
[2020-09-07] MEDS: FAMOTIDINE 20 MG TAB PO SCH (11:20)
[2020-09-07] MEDS: NICOTINE 21MG/24 HR TOPICAL PATCH TD SCH (11:21)
[2020-09-07] MEDS: FINASTERIDE 5 MG TAB PO SCH (11:21)
[2020-09-07 13:00] VITALS: BP 119/67
[2020-09-07 17:00] VITALS: BP 104/56
[2020-09-08 00:37] VITALS: BP 112/64
[2020-09-08 05:29] VITALS: BP 119/66
[2020-09-08 05:34] LABS: Basophils # (auto) 0.1 10 ^3/uL (0-0.2); Eosinophils # (auto) 0.3 10 ^3/uL (0-0.8); Eosinophils % (auto) 3.2 % (0.0-7.0); Lymphocytes # (auto) 2.1 10 ^3/uL (0.4-5.4); Monocytes # (auto) 0.7 10 ^3/uL (0-1.3); Red Blood Cells 4.34 10^6/uL (4.5-5.90)
[2020-09-08 05:36] LABS: Hemoglobin 11.2 g/dL (13.5-17.5); Lymphocytes % (auto) 25.7 % (10.0-50.0); Mean Corpuscular Hemoglobin 25.8 pg (28.0-32.0); Mean Corpuscular Volume 78.2 fL (80.0-100.0); Monocytes % (auto) 8.7 % (0.0-12.0); Neutrophils # (auto) 4.9 10 ^3/uL (1.6-8.6); Neutrophils % (auto) 61.4 % (37.0-80.0); Nucleated Red Blood Cells % 0.1 %; Platelet Count (auto) 242 10^3/uL (140-450); Red Cell Distribution Width 16.5 % (11.8-14.3)
[2020-09-08 05:52] LABS: BUN/Creatinine Ratio 27.2; Calcium 9.2 mg/dL (8.5-10.1); Potassium 4.9 mmol/L (3.5-5.1)
[2020-09-08] MEDS: AMITRIPTYLINE HCL 25 MG TAB PO SCH ×2 (06:00→14:00)
[2020-09-08] MEDS: MORPHINE SULF INJ 2 MG/ML SYRINGE 1ML IV PRN (06:30)
[2020-09-08] MEDS: InsuLIN REG 1unit/0.01ml Soln (100units/ml) SC SCH ×3 (06:30→17:00)
[2020-09-08] MEDS: ACCU-CHEK COMFORT CURVE STRIP VI SCH ×3 (06:30→17:00)
[2020-09-08] MEDS: INSULIN LANTUS (GLARGINE) 1 /0.01ml (100units/ml) SC SCH (06:31)
[2020-09-08 08:55] VITALS: BP 114/66
[2020-09-08] MEDS: LINEZOLID 600MG TABLET PO SCH (09:10)
[2020-09-08] MEDS: FAMOTIDINE 20 MG TAB PO SCH (09:11)
[2020-09-08] MEDS: levoFLOXacin 250 MG TAB PO SCH (09:11)
[2020-09-08] MEDS: FINASTERIDE 5 MG TAB PO SCH (09:12)
[2020-09-08] MEDS: NICOTINE 21MG/24 HR TOPICAL PATCH TD SCH (10:00)
[2020-09-08] MEDS ORDERED: MORPHINE SULF INJ 2 MG/ML SYRINGE 1ML IV PRN (10:30)
[2020-09-08 12:49] VITALS: BP 113/65
[2020-09-08 16:51] VITALS: BP 93/49
[2020-09-08 16:55] VITALS: BP 113/65
== END 2020-09-08 18:15 | DRG 475 ==
LOC: ER 12:46 → TELE 12:47 → TELE-CENTR 23:20
PROVIDERS: ADMIT Nurse Practitioner Acute Care; ATTEND Family Medicine
PROC: 0Y6J0Z1 Detachment at Left Lower Leg, High, Open Approach (ICD-10-PCS; principal; 2020-09-01 08:17)
DX: T87.89 Other complications of amputation stump (principal); E11.52 Type 2 diabetes mellitus with diabetic peripheral angiopathy with gangrene; E44.0 Moderate protein-calorie malnutrition; L03.116 Cellulitis of left lower limb; I70.262 Atherosclerosis of native arteries of extremities with gangrene, left leg; M86.8X7 Other osteomyelitis, ankle and foot; E11.628 Type 2 diabetes mellitus with other skin complications; E11.69 Type 2 diabetes mellitus with other specified complication; Z20.822 Contact with and (suspected) exposure to COVID-19; Y83.8 Other surgical procedures as the cause of abnormal reaction of the patient, or of later complication, without mention of misadventure at the time of the procedure; Z91.19 Patient's noncompliance with other medical treatment and regimen; E11.40 Type 2 diabetes mellitus with diabetic neuropathy, unspecified; F17.210 Nicotine dependence, cigarettes, uncomplicated; E11.21 Type 2 diabetes mellitus with diabetic nephropathy; I10 Essential (primary) hypertension; Z79.4 Long term (current) use of insulin; Z82.49 Family history of ischemic heart disease and other diseases of the circulatory system; Z83.3 Family history of diabetes mellitus; Z86.73 Personal history of transient ischemic attack (TIA), and cerebral infarction without residual deficits; Z79.899 Other long term (current) drug therapy; Y92.89 Other specified places as the place of occurrence of the external cause; Z88.1 Allergy status to other antibiotic agents; Z71.6 Tobacco abuse counseling; Z68.24 Body mass index [BMI] 24.0-24.9, adult
CPT/HCPCS: 36415; 71045; 73630; 73700; 80048; 80053; 81001; 82962; 83036; 83605; 84484; 85025; 85610; 85730; 86850; 86900; 86901; 87040; 87077; 87081; 87186; 87205; 87426; 96365; 96366; 96375; 97110; 97116; 97530; G0378; J0690; J0696; J1100; J1815; J1885; J1956; J2250; J2405; J2543; J2704; J3490

== ENCOUNTER 2021-01-12 09:11 | Inpatient (IN) | payer BC ==
[~2021-01-12] VITALS: Ht 152.4 cm; Wt 77.5 kg
[~2021-01-12 09:11] MED LIST changes: +AMIT25TA9 PO; +CLOP75TA28 PO; -CYCL7.5T45 PO; +FLUT1AER6 IN; -INSU1INJ5 SC; -LACT10SO3 PO; +LEVEMIR SC; +METF-372 PO; +PIRO10CA PO
[2021-01-12] MEDS: PIPERACILLIN-TAZOB 3.375GM 100 ML IV ONE ×2 (10:00→15:26)
[2021-01-12 10:17] LABS: Basophils # (auto) 0.1 10 ^3/uL (0-0.2); Eosinophils # (auto) 0.2 10 ^3/uL (0-0.8); Eosinophils % (auto) 1.7 % (0.0-7.0); Hemoglobin 11.8 g/dL (13.5-17.5); Lymphocytes # (auto) 1.6 10 ^3/uL (0.4-5.4); White Blood Cell 10.9 10^3/uL (4.4-10.8)
[2021-01-12 10:18] LABS: Basophils % (auto) 1.1 % (0.0-2.0); Lymphocytes % (auto) 14.3 % (10.0-50.0); Mean Corpuscular Hgb Conc. 32.8 g/dL (32.0-36.0); Mean Corpuscular Volume 79.3 fL (80.0-100.0); Monocytes # (auto) 0.9 10 ^3/uL (0-1.3); Monocytes % (auto) 8.3 % (0.0-12.0); Neutrophils # (auto) 8.1 10 ^3/uL (1.6-8.6); Neutrophils % (auto) 74.6 % (37.0-80.0); Red Blood Cells 4.53 10^6/uL (4.5-5.90); Red Cell Distribution Width 16.3 % (11.8-14.3)
[2021-01-12 10:34] LABS: INR 1.03 (0.9-1.15); Partial Thromboplastin Time 33.4 sec (23.6-33.0)
[2021-01-12 10:35] LABS: Albumin 2.8 g/dL (3.4-5.0); Anion Gap 4 (5-15); Blood Urea Nitrogen 14 mg/dL (7-18); Calcium 9.2 mg/dL (8.5-10.1); Carbon Dioxide 26 mmol/L (21-32); Chloride 106 mmol/L (98-107); Glucose 217 mg/dL (74-106); Potassium 4.4 mmol/L (3.5-5.1); Sodium 136 mmol/L (136-145)
[2021-01-12 10:40] LABS: Alanine Aminotransferase 12 U/L (16-61); Alkaline Phosphatase 68 U/L (45-117); Aspartate Aminotransferase 8 U/L (15-37); BUN/Creatinine Ratio 17.5; Bilirubin, Total 0.2 mg/dL (0.2-1.0); GFR African American 125 mL/min; GFR Non-African American 103 mL/min; Total Protein 7.5 g/dL (6.4-8.2)
[2021-01-12] MEDS ORDERED: NITROGLYCERIN 0.4 MG SL TAB SL PRN (12:00)
[2021-01-12] MEDS ORDERED: DEXTROSE (50%) 50ML SYRG IV PRN (12:00)
[2021-01-12] MEDS ORDERED: MORPHINE SULFATE INJECTION 2 MG/2 ML SYRG IV PRN (12:00)
[2021-01-12] MEDS ORDERED: ACETAMINOPHEN 500 MG TAB PO PRN (12:00)
[2021-01-12] MEDS ORDERED: DOCUSATE SOD 100 MG CAP PO PRN (12:00)
[2021-01-12] MEDS ORDERED: ONDANSETRON HCL 4 MG/2 ML VIAL IV PRN (12:00)
[2021-01-12] MEDS: CLINDAMYCIN 300MG IV 50 ML IV SCH ×2 (15:26→22:39)
[2021-01-12] MEDS: ACCU-CHEK COMFORT CURVE STRIP VI SCH ×2 (17:25→22:39)
[2021-01-12] MEDS: InsuLIN REG 1unit/0.01ml Soln (100units/ml) SC SCH ×2 (17:28→22:00)
[2021-01-12] MEDS: HYDROcodone-ACET 10/325MG TAB PO PRN (18:52)
[2021-01-12 22:00] VITALS: BP 99/60
[2021-01-12] MEDS ORDERED: AMIT10TA6 PO (23:33)
[2021-01-12] MEDS ORDERED: PANT40TA2 PO (23:33)
[2021-01-12] MEDS ORDERED: PIRO10CA PO (23:33)
[2021-01-13 01:45] VITALS: BP 94/55
[2021-01-13 05:00] VITALS: BP 126/74
[2021-01-13] MEDS: HYDROcodone-ACET 10/325MG TAB PO PRN ×3 (05:26→20:09)
[2021-01-13] MEDS: CLINDAMYCIN 300MG IV 50 ML IV SCH ×3 (05:26→21:04)
[2021-01-13] MEDS: InsuLIN REG 1unit/0.01ml Soln (100units/ml) SC SCH ×4 (05:32→21:04)
[2021-01-13] MEDS: ACCU-CHEK COMFORT CURVE STRIP VI SCH ×4 (05:32→21:05)
[2021-01-13 09:00] VITALS: BP 108/65
[2021-01-13 09:09] LABS: Urine Bacteria NONE SEEN /hpf (None Seen); Urine Blood Negative /uL (Negative); Urine WBC 2 /hpf (0 - 3)
[2021-01-13] MEDS: cefTRIAXone 1GM/50ML D5W 50 ML IV SCH (10:19)
[2021-01-13] MEDS: DOCUSATE SOD 100 MG CAP PO SCH (10:19)
[2021-01-13] MEDS ORDERED: LORazepam 2MG/ML-1ML VIAL IV ONE (10:30)
[2021-01-13 12:53] VITALS: BP 114/65
[2021-01-13 17:00] VITALS: BP 99/47
[2021-01-13 22:00] VITALS: BP 149/91
[2021-01-14 05:00] VITALS: BP 135/73
[2021-01-14] MEDS: CLINDAMYCIN 300MG IV 50 ML IV SCH ×3 (05:01→22:27)
[2021-01-14] MEDS: HYDROcodone-ACET 10/325MG TAB PO PRN ×2 (05:16→22:00)
[2021-01-14] MEDS: ACCU-CHEK COMFORT CURVE STRIP VI SCH ×4 (06:21→22:00)
[2021-01-14] MEDS: InsuLIN REG 1unit/0.01ml Soln (100units/ml) SC SCH ×4 (06:21→22:00)
[2021-01-14 06:24] LABS: Basophils # (auto) 0.1 10 ^3/uL (0-0.2); Eosinophils # (auto) 0.3 10 ^3/uL (0-0.8); Hematocrit 33.6 % (41.0-53.0); Hemoglobin 11.4 g/dL (13.5-17.5); Lymphocytes # (auto) 1.9 10 ^3/uL (0.4-5.4); Mean Corpuscular Hemoglobin 26.7 pg (28.0-32.0); Monocytes # (auto) 0.8 10 ^3/uL (0-1.3); Monocytes % (auto) 8.9 % (0.0-12.0); Neutrophils # (auto) 6.1 10 ^3/uL (1.6-8.6); Neutrophils % (auto) 66.4 % (37.0-80.0); White Blood Cell 9.2 10^3/uL (4.4-10.8)
[2021-01-14 06:28] LABS: Basophils % (auto) 0.8 % (0.0-2.0); Eosinophils % (auto) 3.2 % (0.0-7.0); Lymphocytes % (auto) 20.7 % (10.0-50.0); Mean Corpuscular Hgb Conc. 33.9 g/dL (32.0-36.0); Mean Corpuscular Volume 78.8 fL (80.0-100.0); Nucleated Red Blood Cells % 0.1 %; Red Blood Cells 4.26 10^6/uL (4.5-5.90); Red Cell Distribution Width 16.2 % (11.8-14.3)
[2021-01-14 06:36] LABS: BUN/Creatinine Ratio 16.3; Calcium 9.1 mg/dL (8.5-10.1); Potassium 4.5 mmol/L (3.5-5.1)
[2021-01-14 08:50] VITALS: BP 113/57
[2021-01-14] MEDS: cefTRIAXone 1GM/50ML D5W 50 ML IV SCH (09:41)
[2021-01-14] MEDS: DOCUSATE SOD 100 MG CAP PO SCH (09:41)
[2021-01-14] MEDS: SODIUM CHLORIDE 0.9% 1,000 ML IV SCH ×2 (10:51→13:49)
[2021-01-14 13:00] VITALS: BP 98/61
[2021-01-14] MEDS ORDERED: ceFAZolin 1GM/50ML 100 ML IV ONE (14:09)
[2021-01-14] MEDS ORDERED: POVIDONE IODINE 10 % TOPICAL OINT 30GM TOP ONE ×2 (15:00→16:15)
[2021-01-14] MEDS ORDERED: MIDAZOLAM HCL 2MG/2ML 2ml VIAL (1mg/ml) ONE (15:08)
[2021-01-14] MEDS ORDERED: fentaNYL CITRATE 100 MCG/2 ML VL ONE ×2 (15:08→16:22)
[2021-01-14] MEDS ORDERED: LIDOCAINE 2% (LOCAL ANESTH.) PF 5ml SDV ONE (15:11)
[2021-01-14] MEDS ORDERED: ONDANSETRON HCL 4 MG/2 ML VIAL ONE (15:11)
[2021-01-14] MEDS ORDERED: PROPOFOL 10 MG/ML 20 ML IV ONE (15:37)
[2021-01-14] MEDS ORDERED: HYDROmorphone HCL 2 MG/ML VL IV PRN ×2 (16:45)
[2021-01-14] MEDS ORDERED: ONDANSETRON HCL 4 MG/2 ML VIAL IV PRN (16:45)
[2021-01-14 17:30] VITALS: BP 140/70
[2021-01-14] MEDS: MORPHINE SULFATE INJECTION 2 MG/2 ML SYRG IV PRN ×2 (17:45→23:19)
[2021-01-14 22:00] VITALS: BP 125/68
[2021-01-15] MEDS: MORPHINE SULFATE INJECTION 2 MG/2 ML SYRG IV PRN ×3 (03:46→19:53)
[2021-01-15 05:00] VITALS: BP 119/58
[2021-01-15] MEDS: CLINDAMYCIN 300MG IV 50 ML IV SCH ×3 (06:15→22:20)
[2021-01-15] MEDS: InsuLIN REG 1unit/0.01ml Soln (100units/ml) SC SCH ×4 (06:16→22:00)
[2021-01-15] MEDS: ACCU-CHEK COMFORT CURVE STRIP VI SCH ×4 (06:17→22:21)
[2021-01-15 06:30] LABS: Basophils # (auto) 0.1 10 ^3/uL (0-0.2); Basophils % (auto) 0.6 % (0.0-2.0); Eosinophils # (auto) 0.2 10 ^3/uL (0-0.8); Monocytes # (auto) 0.9 10 ^3/uL (0-1.3)
[2021-01-15 06:34] LABS: Eosinophils % (auto) 1.9 % (0.0-7.0); Hematocrit 33.6 % (41.0-53.0); Hemoglobin 11.4 g/dL (13.5-17.5); Lymphocytes # (auto) 1.8 10 ^3/uL (0.4-5.4); Lymphocytes % (auto) 19.3 % (10.0-50.0); Mean Corpuscular Hemoglobin 26.4 pg (28.0-32.0); Mean Corpuscular Hgb Conc. 33.8 g/dL (32.0-36.0); Mean Corpuscular Volume 78.1 fL (80.0-100.0); Monocytes % (auto) 9.4 % (0.0-12.0); Neutrophils # (auto) 6.5 10 ^3/uL (1.6-8.6); Neutrophils % (auto) 68.8 % (37.0-80.0); Red Cell Distribution Width 16.6 % (11.8-14.3); White Blood Cell 9.4 10^3/uL (4.4-10.8)
[2021-01-15 06:48] LABS: Calcium 8.8 mg/dL (8.5-10.1); Potassium 4.1 mmol/L (3.5-5.1)
[2021-01-15 06:53] LABS: BUN/Creatinine Ratio 13.9
[2021-01-15] MEDS: cefTRIAXone 1GM/50ML D5W 50 ML IV SCH (08:20)
[2021-01-15] MEDS: DOCUSATE SOD 100 MG CAP PO SCH (08:21)
[2021-01-15 09:00] VITALS: BP 113/59
[2021-01-15] MEDS: HYDROcodone-ACET 10/325MG TAB PO PRN (10:45)
[2021-01-15] MEDS ORDERED: BACLOFEN 10 MG TAB PO ONE (11:15)
[2021-01-15 13:00] VITALS: BP 108/61
[2021-01-15] MEDS: SODIUM CHLORIDE 0.9% 1,000 ML IV SCH (13:10)
[2021-01-15] MEDS ORDERED: LIDOCAINE 2%HCL (LOCAL ANESTH.) INJ 20ML MDV ONE (13:21)
[2021-01-15] MEDS ORDERED: IODIXANOL 320MG/ML 100ML BTL IV ONE (13:21)
[2021-01-15] MEDS ORDERED: SODIUM CHL 0.9% 50 ML ONE (13:33)
[2021-01-15] MEDS ORDERED: fentaNYL CITRATE 100 MCG/2 ML VL ONE (13:33)
[2021-01-15] MEDS ORDERED: MIDAZOLAM HCL 2MG/2ML 2ml VIAL (1mg/ml) ONE ×2 (13:33→14:18)
[2021-01-15] MEDS ORDERED: ANGIOMAX 250 MG VIAL IV ONE (13:33)
[2021-01-15] MEDS ORDERED: diphenhdrAMINE HCL 50 MG/1 ML VL ONE (13:41)
[2021-01-15] MEDS ORDERED: hydrALAZINE HCL 20 MG/ML VL ONE (13:53)
[2021-01-15] MEDS ORDERED: HYDROmorphone HCL 2 MG/ML VL ONE (14:00)
[2021-01-15] MEDS ORDERED: NITROGLYCERIN 5MG/ML 10ML VIAL IV ONE (14:03)
[2021-01-15] MEDS ORDERED: VERAPAMIL 2.5MG/ML INJ 2ML VIAL IV ONE (14:03)
[2021-01-15 16:45] VITALS: BP 128/63
[2021-01-15] MEDS: ASPirin 81 mg TAB PO SCH (17:48)
[2021-01-15] MEDS: CLOPIDOGREL BISULFATE 75 MG TAB PO SCH (17:48)
[2021-01-15] MEDS: BACLOFEN 10 MG TAB PO PRN (20:29)
[2021-01-15 22:00] VITALS: BP 102/52
[2021-01-15] MEDS ORDERED: ATORVASTATIN 20 MG TAB PO SCH (22:00)
[2021-01-16] MEDS: SODIUM CHLORIDE 0.9% 1,000 ML IV SCH ×2 (02:10→15:50)
[2021-01-16] MEDS: BACLOFEN 10 MG TAB PO PRN ×2 (04:04→16:50)
[2021-01-16] MEDS: MORPHINE SULFATE INJECTION 2 MG/2 ML SYRG IV PRN (04:04)
[2021-01-16 05:00] VITALS: BP 113/58
[2021-01-16] MEDS: CLINDAMYCIN 300MG IV 50 ML IV SCH ×2 (05:45→14:00)
[2021-01-16 06:23] LABS: Basophils # (auto) 0.1 10 ^3/uL (0-0.2); Eosinophils # (auto) 0.1 10 ^3/uL (0-0.8)
[2021-01-16 06:28] LABS: Basophils % (auto) 0.5 % (0.0-2.0); Eosinophils % (auto) 0.5 % (0.0-7.0); Hematocrit 33.8 % (41.0-53.0); Hemoglobin 11.3 g/dL (13.5-17.5); Lymphocytes # (auto) 1.2 10 ^3/uL (0.4-5.4); Lymphocytes % (auto) 7.9 % (10.0-50.0); Mean Corpuscular Hemoglobin 26.3 pg (28.0-32.0); Mean Corpuscular Hgb Conc. 33.4 g/dL (32.0-36.0); Mean Corpuscular Volume 78.9 fL (80.0-100.0); Monocytes # (auto) 1.1 10 ^3/uL (0-1.3); Monocytes % (auto) 7.6 % (0.0-12.0); Neutrophils # (auto) 12.3 10 ^3/uL (1.6-8.6); Neutrophils % (auto) 83.5 % (37.0-80.0); Red Blood Cells 4.28 10^6/uL (4.5-5.90); Red Cell Distribution Width 16.7 % (11.8-14.3); White Blood Cell 14.8 10^3/uL (4.4-10.8)
[2021-01-16 06:35] LABS: BUN/Creatinine Ratio 10.1; Calcium 9.3 mg/dL (8.5-10.1)
[2021-01-16] MEDS: InsuLIN REG 1unit/0.01ml Soln (100units/ml) SC SCH ×3 (07:00→17:00)
[2021-01-16] MEDS: ACCU-CHEK COMFORT CURVE STRIP VI SCH ×3 (07:02→17:00)
[2021-01-16 09:00] VITALS: BP 127/72
[2021-01-16] MEDS: cefTRIAXone 1GM/50ML D5W 50 ML IV SCH (09:30)
[2021-01-16] MEDS: ASPirin 81 mg TAB PO SCH (09:40)
[2021-01-16] MEDS: CLOPIDOGREL BISULFATE 75 MG TAB PO SCH (09:40)
[2021-01-16] MEDS: DOCUSATE SOD 100 MG CAP PO SCH (09:40)
[2021-01-16 13:00] VITALS: BP 106/55
[2021-01-16 16:37] VITALS: BP 138/59
== END 2021-01-16 19:20 | disposition home health service (06) | DRG 501 ==
LOC: ER 09:11 → TELE 11:53 → TELE-CENTR 20:45
PROVIDERS: ADMIT Nurse Practitioner Acute Care; ATTEND Internal Medicine
PROC: 0YBJ0ZZ Excision of Left Lower Leg, Open Approach (ICD-10-PCS; principal; 2021-01-14 15:07)
PROC: 047K3ZZ Dilation of Right Femoral Artery, Percutaneous Approach (ICD-10-PCS; 2021-01-15)
PROC: 04CK3ZZ Extirpation of Matter from Right Femoral Artery, Percutaneous Approach (ICD-10-PCS; 2021-01-15)
PROC: B41GYZZ Fluoroscopy of Left Lower Extremity Arteries using Other Contrast (ICD-10-PCS; 2021-01-15)
PROC: B41FYZZ Fluoroscopy of Right Lower Extremity Arteries using Other Contrast (ICD-10-PCS; 2021-01-15)
DX: T87.44 Infection of amputation stump, left lower extremity (principal); L03.116 Cellulitis of left lower limb; E11.51 Type 2 diabetes mellitus with diabetic peripheral angiopathy without gangrene; E11.621 Type 2 diabetes mellitus with foot ulcer; E66.9 Obesity, unspecified; F17.210 Nicotine dependence, cigarettes, uncomplicated; Z20.822 Contact with and (suspected) exposure to COVID-19; I10 Essential (primary) hypertension; J44.9 Chronic obstructive pulmonary disease, unspecified; T87.81 Dehiscence of amputation stump; Y83.5 Amputation of limb(s) as the cause of abnormal reaction of the patient, or of later complication, without mention of misadventure at the time of the procedure; L97.519 Non-pressure chronic ulcer of other part of right foot with unspecified severity; R29.6 Repeated falls; Z79.82 Long term (current) use of aspirin; Z79.4 Long term (current) use of insulin; Z79.899 Other long term (current) drug therapy; Z82.49 Family history of ischemic heart disease and other diseases of the circulatory system; Z83.3 Family history of diabetes mellitus; Z86.73 Personal history of transient ischemic attack (TIA), and cerebral infarction without residual deficits; Z91.81 History of falling; Z79.02 Long term (current) use of antithrombotics/antiplatelets; Z68.27 Body mass index [BMI] 27.0-27.9, adult
CPT/HCPCS: 36415; 71045; 73700; 73718; 80048; 80053; 81001; 82962; 83036; 83605; 84484; 85025; 85610; 85652; 85730; 87040; 87426; 93005; 93925; 96365; 96366; 99152; 99153; C1724; G0378; J0690; J0696; J1815; J2001; J2250; J2405; J2543; J2704; J3490; Q9967

== ENCOUNTER 2021-02-10 19:35 | Inpatient (IN) | payer BC, OTHER ==
[~2021-02-10] VITALS: Ht 167.6 cm; Wt 57.0 kg
[~2021-02-10 19:35] MED LIST changes: +AMIT10TA6 PO; -AMIT1TAB92 PO; -AMIT25TA9 PO; -METF-372 PO; -OMEP-260 PO; +PANT40TA2 PO; -PIRO20CA PO
[2021-02-10] MEDS ORDERED: cefTRIAXone 1GM/50ML D5W 50 ML IV ONE (23:30)
[2021-02-10] MEDS ORDERED: CLINDAMYCIN 600MG IV 50 ML IV ONE (23:30)
[2021-02-11] VITALS (7 sets, daily range): BP systolic 107–131; BP diastolic 50–57
[2021-02-11 00:09] LABS: Basophils # (auto) 0.1 10 ^3/uL (0-0.2); Eosinophils # (auto) 0.4 10 ^3/uL (0-0.8); Lymphocytes # (auto) 2.1 10 ^3/uL (0.4-5.4); Mean Corpuscular Hgb Conc. 32.3 g/dL (32.0-36.0); White Blood Cell 17.8 10^3/uL (4.4-10.8)
[2021-02-11 00:11] LABS: Basophils % (auto) 0.8 % (0.0-2.0); Hematocrit 27.7 % (41.0-53.0); Hemoglobin 8.9 g/dL (13.5-17.5); Lymphocytes % (auto) 11.7 % (10.0-50.0); Mean Corpuscular Hemoglobin 24.1 pg (28.0-32.0); Mean Corpuscular Volume 74.7 fL (80.0-100.0); Monocytes # (auto) 1.2 10 ^3/uL (0-1.3); Monocytes % (auto) 6.6 % (0.0-12.0); Neutrophils # (auto) 14.1 10 ^3/uL (1.6-8.6); Neutrophils % (auto) 78.9 % (37.0-80.0); Red Cell Distribution Width 16.5 % (11.8-14.3)
[2021-02-11 00:22] LABS: INR 1.09 (0.9-1.15); Partial Thromboplastin Time 38.9 sec (23.6-33.0)
[2021-02-11 00:27] LABS: Alanine Aminotransferase 28 U/L (16-61); Albumin 1.9 g/dL (3.4-5.0); Anion Gap 6 (5-15); Aspartate Aminotransferase 25 U/L (15-37); BUN/Creatinine Ratio 17.7; Blood Urea Nitrogen 11 mg/dL (7-18); Calcium 8.9 mg/dL (8.5-10.1); Carbon Dioxide 27 mmol/L (21-32); Chloride 101 mmol/L (98-107); GFR African American 168 mL/min; GFR Non-African American 139 mL/min; Glucose 176 mg/dL (74-106); Potassium 4.1 mmol/L (3.5-5.1); Sodium 134 mmol/L (136-145)
[2021-02-11 00:32] LABS: Alkaline Phosphatase 93 U/L (45-117); Bilirubin, Total 0.2 mg/dL (0.2-1.0); Total Protein 7.1 g/dL (6.4-8.2)
[2021-02-11] MEDS: CLINDAMYCIN 600MG IV 50 ML IV SCH ×3 (06:00→21:21)
[2021-02-11] MEDS ORDERED: ONDANSETRON HCL 4 MG/2 ML VIAL IV PRN (06:30)
[2021-02-11] MEDS ORDERED: DEXTROSE (50%) 50ML SYRG IV PRN (06:30)
[2021-02-11] MEDS: SODIUM CHLORIDE 0.9% 1,000 ML IV SCH ×2 (06:30→19:50)
[2021-02-11] MEDS ORDERED: ACETAMINOPHEN 325 MG TAB PO PRN (06:30)
[2021-02-11] MEDS ORDERED: HYDROcodone-ACET 5/325MG TAB PO PRN (06:30)
[2021-02-11] MEDS ORDERED: MORPHINE SULFATE 4 MG/ML SYR/VIAL IV PRN (06:30)
[2021-02-11] MEDS: PANTOPRAZOLE 40 MG TAB PO SCH (09:11)
[2021-02-11] MEDS: cefTRIAXone 1GM/50ML D5W 50 ML IV SCH (09:12)
[2021-02-11] MEDS: CLOPIDOGREL BISULFATE 75 MG TAB PO SCH (09:12)
[2021-02-11] MEDS: ACCU-CHEK COMFORT CURVE STRIP VI SCH ×3 (12:09→23:57)
[2021-02-11] MEDS: InsuLIN REG 1unit/0.01ml Soln (100units/ml) SC SCH ×2 (12:10→16:56)
[2021-02-11 13:03] LABS: Urine Bacteria NONE SEEN /hpf (None Seen); Urine Blood Negative /uL (Negative); Urine Hyaline Cast FEW /lpf (0 - 2); Urine Specific Gravity 1.012 (1.001-1.035); Urine WBC 4 /hpf (0 - 3)
[2021-02-11 15:54] LABS: % Iron Saturation 9.6 % (20-55)
[2021-02-11] MEDS: Glucerna Carbsteady SHAKE Vanilla 8oz PO SCH (17:44)
[2021-02-11] MEDS: MORPHINE SULFATE 4 MG/ML SYR/VIAL IV PRN (20:53)
[2021-02-11] MEDS: TEMAZEPAM 15 MG CAP PO PRN (21:22)
[2021-02-12] MEDS: InsuLIN REG 1unit/0.01ml Soln (100units/ml) SC SCH ×5 (00:13→23:19)
[2021-02-12] MEDS: MORPHINE SULFATE 4 MG/ML SYR/VIAL IV PRN ×4 (02:00→21:10)
[2021-02-12 05:00] VITALS: BP 117/62
[2021-02-12 05:34] LABS: Basophils # (auto) 0.1 10 ^3/uL (0-0.2); Basophils % (auto) 0.6 % (0.0-2.0); Lymphocytes # (auto) 1.9 10 ^3/uL (0.4-5.4); Neutrophils # (auto) 13.4 10 ^3/uL (1.6-8.6)
[2021-02-12 05:39] LABS: Eosinophils # (auto) 0.3 10 ^3/uL (0-0.8); Eosinophils % (auto) 1.8 % (0.0-7.0); Hemoglobin 10.1 g/dL (13.5-17.5); Lymphocytes % (auto) 10.8 % (10.0-50.0); Mean Corpuscular Hgb Conc. 31.6 g/dL (32.0-36.0); Mean Corpuscular Volume 75.8 fL (80.0-100.0); Monocytes # (auto) 1.5 10 ^3/uL (0-1.3); Monocytes % (auto) 8.7 % (0.0-12.0); Neutrophils % (auto) 78.1 % (37.0-80.0); Red Blood Cells 4.22 10^6/uL (4.5-5.90); Red Cell Distribution Width 16.9 % (11.8-14.3); White Blood Cell 17.2 10^3/uL (4.4-10.8)
[2021-02-12] MEDS: CLINDAMYCIN 600MG IV 50 ML IV SCH (05:58)
[2021-02-12] MEDS: ACCU-CHEK COMFORT CURVE STRIP VI SCH ×4 (05:59→23:19)
[2021-02-12] MEDS: PANTOPRAZOLE 40 MG TAB PO SCH (05:59)
[2021-02-12 06:21] LABS: Chloride 106 mmol/L (98-107); Potassium 3.8 mmol/L (3.5-5.1); Sodium 138 mmol/L (136-145)
[2021-02-12 06:27] LABS: Albumin 1.8 g/dL (3.4-5.0); Anion Gap 10 (5-15); BUN/Creatinine Ratio 18.2; Blood Urea Nitrogen 10 mg/dL (7-18); Calcium 8.7 mg/dL (8.5-10.1); Carbon Dioxide 22 mmol/L (21-32); GFR African American 193 mL/min; GFR Non-African American 159 mL/min; Glucose 123 mg/dL (74-106)
[2021-02-12 06:30] LABS: Alanine Aminotransferase 28 U/L (16-61); Alkaline Phosphatase 87 U/L (45-117); Aspartate Aminotransferase 27 U/L (15-37); Bilirubin, Total 0.3 mg/dL (0.2-1.0); Total Protein 6.9 g/dL (6.4-8.2)
[2021-02-12 09:00] VITALS: BP 148/84
[2021-02-12] MEDS: FINASTERIDE 5 MG TAB PO SCH (09:06)
[2021-02-12] MEDS: CLOPIDOGREL BISULFATE 75 MG TAB PO SCH (09:07)
[2021-02-12] MEDS: cefTRIAXone 1GM/50ML D5W 50 ML IV SCH (10:29)
[2021-02-12] MEDS: SODIUM CHLORIDE 0.9% 1,000 ML IV SCH (10:29)
[2021-02-12] MEDS: Glucerna Carbsteady SHAKE Vanilla 8oz PO SCH ×3 (10:29→18:08)
[2021-02-12] MEDS ORDERED: MORPHINE SULFATE INJECTION 2 MG/ML SYRG ONE (11:58)
[2021-02-12] MEDS ORDERED: VANCOMYCIN PER PHARMACY 0 MG IV SCH (12:00)
[2021-02-12] MEDS: DAKINS HALF STR 0.25% (NaHypochlorite) 473 ML TOPICAL SOL TOP SCH ×2 (12:44→21:36)
[2021-02-12] MEDS ORDERED: MORPHINE SULFATE INJECTION 2 MG/ML SYRG IV ONE (12:45)
[2021-02-12 13:00] VITALS: BP_SYST 101; BP_SYST 95; BP_DIAS 60; BP_DIAS 64
[2021-02-12] MEDS: LINEZOLID 600MG/300ML 300 ML IV SCH (13:37)
[2021-02-12] MEDS: HYDROcodone-ACET 5/325MG TAB PO PRN ×2 (13:39→18:53)
[2021-02-12 16:35] VITALS: BP 105/52
[2021-02-12] MEDS: ATORVASTATIN 20 MG TAB PO SCH (21:10)
[2021-02-12 22:00] VITALS: BP 104/51
[2021-02-12] MEDS: TEMAZEPAM 15 MG CAP PO PRN (22:29)
[2021-02-13] MEDS: LINEZOLID 600MG/300ML 300 ML IV SCH (01:30)
[2021-02-13 05:00] VITALS: BP 111/73
[2021-02-13] MEDS: MORPHINE SULFATE 4 MG/ML SYR/VIAL IV PRN ×5 (05:04→22:30)
[2021-02-13] MEDS: PANTOPRAZOLE 40 MG TAB PO SCH (05:15)
[2021-02-13] MEDS: ACCU-CHEK COMFORT CURVE STRIP VI SCH ×4 (05:16→23:02)
[2021-02-13] MEDS: InsuLIN REG 1unit/0.01ml Soln (100units/ml) SC SCH ×4 (05:19→23:03)
[2021-02-13 07:00] LABS: Basophils # (auto) 0.1 10 ^3/uL (0-0.2); Basophils % (auto) 0.3 % (0.0-2.0); Eosinophils # (auto) 0.4 10 ^3/uL (0-0.8); Eosinophils % (auto) 2.5 % (0.0-7.0); Hematocrit 28.1 % (41.0-53.0); Hemoglobin 9.1 g/dL (13.5-17.5); Lymphocytes # (auto) 1.6 10 ^3/uL (0.4-5.4); Lymphocytes % (auto) 9.5 % (10.0-50.0); Mean Corpuscular Hgb Conc. 32.3 g/dL (32.0-36.0); Mean Corpuscular Volume 74.2 fL (80.0-100.0); Monocytes # (auto) 1.1 10 ^3/uL (0-1.3); Monocytes % (auto) 6.5 % (0.0-12.0); Neutrophils # (auto) 13.6 10 ^3/uL (1.6-8.6); Neutrophils % (auto) 81.2 % (37.0-80.0); Red Blood Cells 3.78 10^6/uL (4.5-5.90); Red Cell Distribution Width 16.5 % (11.8-14.3); White Blood Cell 16.8 10^3/uL (4.4-10.8)
[2021-02-13 07:05] LABS: BUN/Creatinine Ratio 14.3; Calcium 8.6 mg/dL (8.5-10.1); Potassium 3.9 mmol/L (3.5-5.1)
[2021-02-13 09:00] VITALS: BP 93/62
[2021-02-13] MEDS: cefTRIAXone 1GM/50ML D5W 50 ML IV SCH (09:25)
[2021-02-13] MEDS: CLOPIDOGREL BISULFATE 75 MG TAB PO SCH (09:25)
[2021-02-13] MEDS: ASPirin 81 mg TAB PO SCH (09:25)
[2021-02-13] MEDS: FINASTERIDE 5 MG TAB PO SCH (09:25)
[2021-02-13] MEDS: Glucerna Carbsteady SHAKE Vanilla 8oz PO SCH ×3 (09:26→17:58)
[2021-02-13] MEDS ORDERED: BACITRACIN TOP OINT 1 UD PKG TOP SCH (10:00)
[2021-02-13] MEDS: DAKINS HALF STR 0.25% (NaHypochlorite) 473 ML TOPICAL SOL TOP SCH ×2 (10:00→22:30)
[2021-02-13 13:00] VITALS: BP 103/55
[2021-02-13] MEDS ORDERED: MEROPENEM 1GM IVPB 100 ML IV ONE (13:45)
[2021-02-13] MEDS ORDERED: PIPERACILLIN-TAZOB 3.375GM 100 ML IV ONE (16:30)
[2021-02-13 17:00] VITALS: BP 95/58
[2021-02-13 22:00] VITALS: BP 111/62
[2021-02-13] MEDS ORDERED: MEROPENEM 1GM IVPB 100 ML IV SCH (22:00)
[2021-02-13] MEDS: ATORVASTATIN 20 MG TAB PO SCH (22:30)
[2021-02-13] MEDS: TEMAZEPAM 15 MG CAP PO PRN (23:22)
[2021-02-14] MEDS: PIPERACILLIN-TAZOB 3.375GM 100 ML IV SCH ×3 (01:49→18:23)
[2021-02-14 05:00] VITALS: BP 150/76
[2021-02-14] MEDS: PANTOPRAZOLE 40 MG TAB PO SCH (06:35)
[2021-02-14] MEDS: ACCU-CHEK COMFORT CURVE STRIP VI SCH ×4 (06:36→23:15)
[2021-02-14] MEDS: MORPHINE SULFATE 4 MG/ML SYR/VIAL IV PRN ×4 (06:36→21:57)
[2021-02-14] MEDS: InsuLIN REG 1unit/0.01ml Soln (100units/ml) SC SCH ×4 (06:37→23:17)
[2021-02-14 07:30] LABS: Basophils # (auto) 0.1 10 ^3/uL (0-0.2); Hemoglobin 9.3 g/dL (13.5-17.5)
[2021-02-14 07:35] LABS: Basophils % (auto) 0.4 % (0.0-2.0); Eosinophils # (auto) 0.2 10 ^3/uL (0-0.8); Eosinophils % (auto) 1.3 % (0.0-7.0); Hematocrit 29.3 % (41.0-53.0); Lymphocytes # (auto) 1.4 10 ^3/uL (0.4-5.4); Lymphocytes % (auto) 8.7 % (10.0-50.0); Mean Corpuscular Hemoglobin 23.5 pg (28.0-32.0); Mean Corpuscular Hgb Conc. 31.7 g/dL (32.0-36.0); Mean Corpuscular Volume 73.9 fL (80.0-100.0); Monocytes # (auto) 1.2 10 ^3/uL (0-1.3); Monocytes % (auto) 7.2 % (0.0-12.0); Neutrophils # (auto) 13.7 10 ^3/uL (1.6-8.6); Neutrophils % (auto) 82.4 % (37.0-80.0); Nucleated Red Blood Cells % 0.1 %; Red Blood Cells 3.97 10^6/uL (4.5-5.90); White Blood Cell 16.6 10^3/uL (4.4-10.8)
[2021-02-14 09:00] VITALS: BP 122/73
[2021-02-14] MEDS: Glucerna Carbsteady SHAKE Vanilla 8oz PO SCH ×3 (09:47→18:23)
[2021-02-14] MEDS: CLOPIDOGREL BISULFATE 75 MG TAB PO SCH (09:59)
[2021-02-14] MEDS: ASPirin 81 mg TAB PO SCH (09:59)
[2021-02-14] MEDS: FINASTERIDE 5 MG TAB PO SCH (09:59)
[2021-02-14] MEDS: DAKINS HALF STR 0.25% (NaHypochlorite) 473 ML TOPICAL SOL TOP SCH ×2 (10:00→22:00)
[2021-02-14] MEDS: BACITRACIN TOP OINT 1 UD PKG TOP SCH (10:00)
[2021-02-14 13:00] VITALS: BP 118/67
[2021-02-14 17:00] VITALS: BP 123/78
[2021-02-14] MEDS: ATORVASTATIN 20 MG TAB PO SCH (20:06)
[2021-02-14] MEDS: HYDROcodone-ACET 5/325MG TAB PO PRN (20:07)
[2021-02-14 22:00] VITALS: BP 113/50
[2021-02-14] MEDS: TEMAZEPAM 15 MG CAP PO PRN (22:29)
[2021-02-15] MEDS: PIPERACILLIN-TAZOB 3.375GM 100 ML IV SCH ×3 (02:00→17:35)
[2021-02-15 05:00] VITALS: BP 107/58
[2021-02-15] MEDS: PANTOPRAZOLE 40 MG TAB PO SCH (05:21)
[2021-02-15] MEDS: InsuLIN REG 1unit/0.01ml Soln (100units/ml) SC SCH ×3 (05:28→17:47)
[2021-02-15] MEDS: ACCU-CHEK COMFORT CURVE STRIP VI SCH ×3 (05:28→17:35)
[2021-02-15] MEDS: HYDROcodone-ACET 5/325MG TAB PO PRN ×3 (06:34→22:16)
[2021-02-15] MEDS: Glucerna Carbsteady SHAKE Vanilla 8oz PO SCH ×3 (08:00→17:55)
[2021-02-15 09:00] VITALS: BP 109/61
[2021-02-15 10:51] LABS: Basophils # (auto) 0.1 10 ^3/uL (0-0.2); Basophils % (auto) 0.6 % (0.0-2.0); Eosinophils # (auto) 0.2 10 ^3/uL (0-0.8); Lymphocytes # (auto) 1.4 10 ^3/uL (0.4-5.4); Mean Corpuscular Hgb Conc. 32.1 g/dL (32.0-36.0); Monocytes # (auto) 1.3 10 ^3/uL (0-1.3)
[2021-02-15 10:54] LABS: Eosinophils % (auto) 1.3 % (0.0-7.0); Hematocrit 30.2 % (41.0-53.0); Hemoglobin 9.7 g/dL (13.5-17.5); Lymphocytes % (auto) 8.7 % (10.0-50.0); Mean Corpuscular Hemoglobin 23.5 pg (28.0-32.0); Mean Corpuscular Volume 73.3 fL (80.0-100.0); Monocytes % (auto) 7.9 % (0.0-12.0); Neutrophils # (auto) 13.5 10 ^3/uL (1.6-8.6); Neutrophils % (auto) 81.5 % (37.0-80.0); Red Blood Cells 4.12 10^6/uL (4.5-5.90); Red Cell Distribution Width 16.6 % (11.8-14.3); White Blood Cell 16.6 10^3/uL (4.4-10.8)
[2021-02-15 11:13] LABS: BUN/Creatinine Ratio 12.5; Potassium 3.9 mmol/L (3.5-5.1)
[2021-02-15] MEDS: FINASTERIDE 5 MG TAB PO SCH (11:36)
[2021-02-15] MEDS: ASPirin 81 mg TAB PO SCH (11:36)
[2021-02-15] MEDS: CLOPIDOGREL BISULFATE 75 MG TAB PO SCH (11:36)
[2021-02-15] MEDS: DAKINS HALF STR 0.25% (NaHypochlorite) 473 ML TOPICAL SOL TOP SCH ×2 (11:37→22:14)
[2021-02-15] MEDS: MORPHINE SULFATE 4 MG/ML SYR/VIAL IV PRN ×2 (11:47→20:07)
[2021-02-15 12:30] VITALS: BP 132/68
[2021-02-15] MEDS ORDERED: ENOXAPARIN SOD 30 MG/0.3 ML SYRINGE SC ONE (16:45)
[2021-02-15] MEDS: ENOXAPARIN SOD 40 MG/0.4 ML SYRINGE SC SCH (16:52)
[2021-02-15 17:00] VITALS: BP 125/57
[2021-02-15] MEDS: ATORVASTATIN 20 MG TAB PO SCH (20:06)
[2021-02-15 22:00] VITALS: BP 119/69
[2021-02-15] MEDS: TEMAZEPAM 15 MG CAP PO PRN (22:16)
[2021-02-16] MEDS: InsuLIN REG 1unit/0.01ml Soln (100units/ml) SC SCH ×4 (00:37→18:00)
[2021-02-16] MEDS: ACCU-CHEK COMFORT CURVE STRIP VI SCH ×4 (00:37→17:28)
[2021-02-16] MEDS: PIPERACILLIN-TAZOB 3.375GM 100 ML IV SCH ×3 (02:43→17:27)
[2021-02-16 05:00] VITALS: BP 111/58
[2021-02-16] MEDS: PANTOPRAZOLE 40 MG TAB PO SCH (05:37)
[2021-02-16 07:03] LABS: Basophils # (auto) 0.1 10 ^3/uL (0-0.2); Eosinophils # (auto) 0.3 10 ^3/uL (0-0.8); Eosinophils % (auto) 1.6 % (0.0-7.0); Monocytes # (auto) 1.4 10 ^3/uL (0-1.3); Red Cell Distribution Width 16.8 % (11.8-14.3)
[2021-02-16 07:08] LABS: Basophils % (auto) 0.5 % (0.0-2.0); Hematocrit 28.7 % (41.0-53.0); Hemoglobin 9.4 g/dL (13.5-17.5); Lymphocytes # (auto) 1.5 10 ^3/uL (0.4-5.4); Lymphocytes % (auto) 8.5 % (10.0-50.0); Mean Corpuscular Hemoglobin 24.1 pg (28.0-32.0); Mean Corpuscular Hgb Conc. 32.7 g/dL (32.0-36.0); Mean Corpuscular Volume 73.7 fL (80.0-100.0); Monocytes % (auto) 7.6 % (0.0-12.0); Neutrophils # (auto) 14.5 10 ^3/uL (1.6-8.6); Neutrophils % (auto) 81.8 % (37.0-80.0); Red Blood Cells 3.89 10^6/uL (4.5-5.90); White Blood Cell 17.7 10^3/uL (4.4-10.8)
[2021-02-16] MEDS: Glucerna Carbsteady SHAKE Vanilla 8oz PO SCH ×3 (08:00→17:27)
[2021-02-16 09:11] VITALS: BP 132/65
[2021-02-16] MEDS: ASPirin 81 mg TAB PO SCH (09:51)
[2021-02-16] MEDS: FINASTERIDE 5 MG TAB PO SCH (09:51)
[2021-02-16] MEDS: BACITRACIN TOP OINT 1 UD PKG TOP SCH (09:51)
[2021-02-16] MEDS: ENOXAPARIN SOD 40 MG/0.4 ML SYRINGE SC SCH (09:51)
[2021-02-16] MEDS: CLOPIDOGREL BISULFATE 75 MG TAB PO SCH (09:51)
[2021-02-16] MEDS: DAKINS HALF STR 0.25% (NaHypochlorite) 473 ML TOPICAL SOL TOP SCH ×2 (09:51→22:25)
[2021-02-16] MEDS: MORPHINE SULFATE 4 MG/ML SYR/VIAL IV PRN (11:01)
[2021-02-16 13:00] VITALS: BP 118/59
[2021-02-16] MEDS ORDERED: LORazepam 0.5 MG TAB PO ONE (13:00)
[2021-02-16 17:07] VITALS: BP 106/48
[2021-02-16 22:00] VITALS: BP 123/55
[2021-02-16] MEDS: ATORVASTATIN 20 MG TAB PO SCH (22:25)
[2021-02-17] MEDS: InsuLIN REG 1unit/0.01ml Soln (100units/ml) SC SCH ×4 (00:01→17:27)
[2021-02-17] MEDS: PIPERACILLIN-TAZOB 3.375GM 100 ML IV SCH ×3 (02:00→17:26)
[2021-02-17 05:00] VITALS: BP 108/52
[2021-02-17] MEDS: PANTOPRAZOLE 40 MG TAB PO SCH (06:38)
[2021-02-17] MEDS: ACCU-CHEK COMFORT CURVE STRIP VI SCH ×4 (06:38→17:27)
[2021-02-17] MEDS: MORPHINE SULFATE 4 MG/ML SYR/VIAL IV PRN ×4 (06:39→22:44)
[2021-02-17] MEDS: Glucerna Carbsteady SHAKE Vanilla 8oz PO SCH ×3 (08:00→17:26)
[2021-02-17 08:48] VITALS: BP 115/88
[2021-02-17] MEDS: CLOPIDOGREL BISULFATE 75 MG TAB PO SCH (10:00)
[2021-02-17] MEDS: DAKINS HALF STR 0.25% (NaHypochlorite) 473 ML TOPICAL SOL TOP SCH ×2 (10:00→22:34)
[2021-02-17] MEDS: ASPirin 81 mg TAB PO SCH (10:00)
[2021-02-17] MEDS: FINASTERIDE 5 MG TAB PO SCH (10:00)
[2021-02-17] MEDS: ENOXAPARIN SOD 40 MG/0.4 ML SYRINGE SC SCH (10:00)
[2021-02-17 12:37] VITALS: BP 96/54
[2021-02-17 17:41] VITALS: BP 136/84
[2021-02-17] MEDS: ATORVASTATIN 20 MG TAB PO SCH (22:34)
[2021-02-18] MEDS: ACCU-CHEK COMFORT CURVE STRIP VI SCH ×5 (00:55→23:56)
[2021-02-18] MEDS: InsuLIN REG 1unit/0.01ml Soln (100units/ml) SC SCH ×5 (01:01→23:57)
[2021-02-18] MEDS: PIPERACILLIN-TAZOB 3.375GM 100 ML IV SCH ×3 (02:46→17:34)
[2021-02-18 05:00] VITALS: BP 131/61
[2021-02-18] MEDS: PANTOPRAZOLE 40 MG TAB PO SCH (06:00)
[2021-02-18] MEDS: Glucerna Carbsteady SHAKE Vanilla 8oz PO SCH ×3 (08:00→18:15)
[2021-02-18 09:00] VITALS: BP 124/42
[2021-02-18] MEDS: MORPHINE SULFATE 4 MG/ML SYR/VIAL IV PRN ×3 (09:25→22:12)
[2021-02-18] MEDS: ASPirin 81 mg TAB PO SCH (09:25)
[2021-02-18] MEDS: FINASTERIDE 5 MG TAB PO SCH (09:25)
[2021-02-18] MEDS: CLOPIDOGREL BISULFATE 75 MG TAB PO SCH (09:25)
[2021-02-18] MEDS: ENOXAPARIN SOD 40 MG/0.4 ML SYRINGE SC SCH (09:27)
[2021-02-18] MEDS: BACITRACIN TOP OINT 1 UD PKG TOP SCH (10:30)
[2021-02-18] MEDS: DAKINS HALF STR 0.25% (NaHypochlorite) 473 ML TOPICAL SOL TOP SCH ×2 (10:30→22:00)
[2021-02-18] MEDS: HYDROcodone-ACET 5/325MG TAB PO PRN (11:21)
[2021-02-18 13:00] VITALS: BP 120/69
[2021-02-18 17:00] VITALS: BP 111/43
[2021-02-18 22:00] VITALS: BP 119/71
[2021-02-18] MEDS: ATORVASTATIN 20 MG TAB PO SCH (22:07)
[2021-02-19] MEDS: PIPERACILLIN-TAZOB 3.375GM 100 ML IV SCH ×3 (02:32→18:39)
[2021-02-19 05:00] VITALS: BP 130/71
[2021-02-19] MEDS: PANTOPRAZOLE 40 MG TAB PO SCH (06:00)
[2021-02-19] MEDS: ACCU-CHEK COMFORT CURVE STRIP VI SCH ×3 (06:22→17:30)
[2021-02-19] MEDS: InsuLIN REG 1unit/0.01ml Soln (100units/ml) SC SCH ×3 (06:23→18:30)
[2021-02-19] MEDS: Glucerna Carbsteady SHAKE Vanilla 8oz PO SCH ×3 (08:00→18:15)
[2021-02-19 09:24] VITALS: BP 102/61
[2021-02-19] MEDS: DAKINS HALF STR 0.25% (NaHypochlorite) 473 ML TOPICAL SOL TOP SCH ×2 (10:00→22:14)
[2021-02-19] MEDS: MORPHINE SULFATE 4 MG/ML SYR/VIAL IV PRN ×3 (10:16→20:58)
[2021-02-19] MEDS: CLOPIDOGREL BISULFATE 75 MG TAB PO SCH (10:16)
[2021-02-19] MEDS: ASPirin 81 mg TAB PO SCH (10:16)
[2021-02-19] MEDS: ENOXAPARIN SOD 40 MG/0.4 ML SYRINGE SC SCH (10:16)
[2021-02-19] MEDS: FINASTERIDE 5 MG TAB PO SCH (10:16)
[2021-02-19] MEDS: HYDROcodone-ACET 5/325MG TAB PO PRN ×2 (11:35→18:39)
[2021-02-19] MEDS ORDERED: GABAPENTIN 100 MG CAP PO ONE (11:45)
[2021-02-19 12:30] VITALS: BP 130/66
[2021-02-19 16:51] VITALS: BP 92/58
[2021-02-19] MEDS: GABAPENTIN 100 MG CAP PO SCH (21:46)
[2021-02-19] MEDS: ATORVASTATIN 20 MG TAB PO SCH (21:46)
[2021-02-19] MEDS: TEMAZEPAM 15 MG CAP PO PRN (21:46)
[2021-02-19 22:00] VITALS: BP 126/65
[2021-02-19 23:45] VITALS: BP 122/76
[2021-02-20] MEDS: ACCU-CHEK COMFORT CURVE STRIP VI SCH ×5 (00:36→22:40)
[2021-02-20] MEDS: HYDROcodone-ACET 5/325MG TAB PO PRN (00:37)
[2021-02-20] MEDS: InsuLIN REG 1unit/0.01ml Soln (100units/ml) SC SCH ×5 (00:37→22:41)
[2021-02-20] MEDS: PIPERACILLIN-TAZOB 3.375GM 100 ML IV SCH ×3 (01:33→17:49)
[2021-02-20] MEDS: PANTOPRAZOLE 40 MG TAB PO SCH (06:15)
[2021-02-20 06:41] LABS: Potassium 3.5 mmol/L (3.5-5.1)
[2021-02-20 06:48] LABS: Basophils # (auto) 0.1 10 ^3/uL (0-0.2); Eosinophils # (auto) 0.3 10 ^3/uL (0-0.8); Eosinophils % (auto) 2.2 % (0.0-7.0); Mean Corpuscular Hgb Conc. 31.9 g/dL (32.0-36.0); Mean Corpuscular Volume 72.9 fL (80.0-100.0); Monocytes # (auto) 1.4 10 ^3/uL (0-1.3); Neutrophils # (auto) 11.5 10 ^3/uL (1.6-8.6); Red Cell Distribution Width 16.6 % (11.8-14.3)
[2021-02-20 06:51] LABS: Basophils % (auto) 0.6 % (0.0-2.0); Hematocrit 31.3 % (41.0-53.0); Lymphocytes # (auto) 2.2 10 ^3/uL (0.4-5.4); Mean Corpuscular Hemoglobin 23.3 pg (28.0-32.0); Monocytes % (auto) 9.3 % (0.0-12.0); Neutrophils % (auto) 73.9 % (37.0-80.0); Red Blood Cells 4.29 10^6/uL (4.5-5.90); White Blood Cell 15.5 10^3/uL (4.4-10.8)
[2021-02-20 07:45] LABS: BUN/Creatinine Ratio 13.8
[2021-02-20] MEDS: Glucerna Carbsteady SHAKE Vanilla 8oz PO SCH ×3 (08:00→17:49)
[2021-02-20] MEDS: ENOXAPARIN SOD 40 MG/0.4 ML SYRINGE SC SCH (10:10)
[2021-02-20] MEDS: ASPirin 81 mg TAB PO SCH (10:10)
[2021-02-20] MEDS: GABAPENTIN 100 MG CAP PO SCH ×2 (10:10→22:40)
[2021-02-20] MEDS: BACITRACIN TOP OINT 1 UD PKG TOP SCH (10:10)
[2021-02-20] MEDS: FINASTERIDE 5 MG TAB PO SCH (10:10)
[2021-02-20] MEDS: DAKINS HALF STR 0.25% (NaHypochlorite) 473 ML TOPICAL SOL TOP SCH ×2 (10:10→22:00)
[2021-02-20] MEDS: CLOPIDOGREL BISULFATE 75 MG TAB PO SCH (10:10)
[2021-02-20] MEDS ORDERED: metroNIDAZOLE 500 MG TAB PO ONE (12:30)
[2021-02-20] MEDS: FLORASTOR (S. BOULARDII) 250 MG CAP PO SCH (12:42)
[2021-02-20] MEDS: metroNIDAZOLE 500 MG TAB PO SCH ×2 (12:42→22:39)
[2021-02-20 17:00] VITALS: BP 91/52
[2021-02-20 22:00] VITALS: BP 94/53
[2021-02-20] MEDS: ATORVASTATIN 20 MG TAB PO SCH (22:40)
[2021-02-21] MEDS: PIPERACILLIN-TAZOB 3.375GM 100 ML IV SCH ×3 (02:50→17:46)
[2021-02-21 06:03] VITALS: BP 126/65
[2021-02-21] MEDS: ACCU-CHEK COMFORT CURVE STRIP VI SCH ×4 (06:42→23:48)
[2021-02-21] MEDS: metroNIDAZOLE 500 MG TAB PO SCH ×3 (06:42→21:52)
[2021-02-21] MEDS: InsuLIN REG 1unit/0.01ml Soln (100units/ml) SC SCH ×4 (06:46→23:52)
[2021-02-21 09:00] VITALS: BP 114/66
[2021-02-21] MEDS: Glucerna Carbsteady SHAKE Vanilla 8oz PO SCH ×3 (11:55→17:46)
[2021-02-21] MEDS: FLORASTOR (S. BOULARDII) 250 MG CAP PO SCH (11:56)
[2021-02-21] MEDS: DAKINS HALF STR 0.25% (NaHypochlorite) 473 ML TOPICAL SOL TOP SCH ×2 (11:56→22:00)
[2021-02-21] MEDS: ASPirin 81 mg TAB PO SCH (11:56)
[2021-02-21] MEDS: FINASTERIDE 5 MG TAB PO SCH (11:56)
[2021-02-21] MEDS: GABAPENTIN 100 MG CAP PO SCH ×2 (11:56→21:52)
[2021-02-21] MEDS: ENOXAPARIN SOD 40 MG/0.4 ML SYRINGE SC SCH (11:57)
[2021-02-21] MEDS: HYDROmorphone HCL 2 MG/ML VL IV PRN ×3 (12:22→23:48)
[2021-02-21 13:00] VITALS: BP 65/66
[2021-02-21 17:00] VITALS: BP 102/53
[2021-02-21] MEDS: ATORVASTATIN 20 MG TAB PO SCH (21:52)
[2021-02-21 22:00] VITALS: BP 110/56
[2021-02-22] MEDS: PIPERACILLIN-TAZOB 3.375GM 100 ML IV SCH ×3 (01:37→18:28)
[2021-02-22 05:00] VITALS: BP 120/46
[2021-02-22] MEDS: ACCU-CHEK COMFORT CURVE STRIP VI SCH ×3 (05:48→18:28)
[2021-02-22] MEDS: metroNIDAZOLE 500 MG TAB PO SCH ×3 (05:48→21:37)
[2021-02-22] MEDS: HYDROmorphone HCL 2 MG/ML VL IV PRN ×2 (05:49→11:08)
[2021-02-22] MEDS: InsuLIN REG 1unit/0.01ml Soln (100units/ml) SC SCH ×3 (05:51→18:29)
[2021-02-22 06:42] LABS: Basophils # (auto) 0.1 10 ^3/uL (0-0.2); Basophils % (auto) 0.8 % (0.0-2.0); Eosinophils # (auto) 0.2 10 ^3/uL (0-0.8); Eosinophils % (auto) 1.3 % (0.0-7.0); Hematocrit 29.7 % (41.0-53.0); Hemoglobin 9.7 g/dL (13.5-17.5); Lymphocytes # (auto) 2.2 10 ^3/uL (0.4-5.4); Lymphocytes % (auto) 12.8 % (10.0-50.0); Mean Corpuscular Hemoglobin 23.5 pg (28.0-32.0); Mean Corpuscular Hgb Conc. 32.5 g/dL (32.0-36.0); Mean Corpuscular Volume 72.5 fL (80.0-100.0); Monocytes # (auto) 1.5 10 ^3/uL (0-1.3); Monocytes % (auto) 8.5 % (0.0-12.0); Neutrophils # (auto) 13.5 10 ^3/uL (1.6-8.6); Neutrophils % (auto) 76.6 % (37.0-80.0); Nucleated Red Blood Cells % 0.1 %; Red Cell Distribution Width 16.6 % (11.8-14.3); White Blood Cell 17.6 10^3/uL (4.4-10.8)
[2021-02-22 06:54] LABS: BUN/Creatinine Ratio 12.7; Calcium 8.9 mg/dL (8.5-10.1)
[2021-02-22 09:00] VITALS: BP 100/53
[2021-02-22] MEDS: FINASTERIDE 5 MG TAB PO SCH (10:49)
[2021-02-22] MEDS: GABAPENTIN 100 MG CAP PO SCH ×2 (10:49→21:37)
[2021-02-22] MEDS: ASPirin 81 mg TAB PO SCH (10:49)
[2021-02-22] MEDS: Glucerna Carbsteady SHAKE Vanilla 8oz PO SCH ×3 (10:49→18:28)
[2021-02-22] MEDS: ENOXAPARIN SOD 40 MG/0.4 ML SYRINGE SC SCH (10:49)
[2021-02-22] MEDS: BACITRACIN TOP OINT 1 UD PKG TOP SCH (10:50)
[2021-02-22] MEDS: DAKINS HALF STR 0.25% (NaHypochlorite) 473 ML TOPICAL SOL TOP SCH ×2 (10:50→21:37)
[2021-02-22] MEDS: FLORASTOR (S. BOULARDII) 250 MG CAP PO SCH (12:15)
[2021-02-22 13:00] VITALS: BP 148/66
[2021-02-22] MEDS: HYDROcodone-ACET 5/325MG TAB PO PRN (16:22)
[2021-02-22 16:27] LABS: INR 1.22 (0.9-1.15); Partial Thromboplastin Time 40.6 sec (23.6-33.0)
[2021-02-22 17:04] VITALS: BP 100/52
[2021-02-22] MEDS: ATORVASTATIN 20 MG TAB PO SCH (21:37)
[2021-02-23] MEDS: ACCU-CHEK COMFORT CURVE STRIP VI SCH ×4 (00:05→17:40)
[2021-02-23] MEDS: HYDROmorphone HCL 2 MG/ML VL IV PRN ×3 (00:06→20:14)
[2021-02-23] MEDS: InsuLIN REG 1unit/0.01ml Soln (100units/ml) SC SCH ×4 (00:07→18:07)
[2021-02-23] MEDS: PIPERACILLIN-TAZOB 3.375GM 100 ML IV SCH ×3 (01:35→17:40)
[2021-02-23 05:11] VITALS: BP 117/66
[2021-02-23 05:38] LABS: Basophils # (auto) 0.1 10 ^3/uL (0-0.2); Basophils % (auto) 0.6 % (0.0-2.0); Eosinophils # (auto) 0.2 10 ^3/uL (0-0.8)
[2021-02-23 05:41] LABS: Eosinophils % (auto) 1.5 % (0.0-7.0); Hematocrit 30.1 % (41.0-53.0); Hemoglobin 9.6 g/dL (13.5-17.5); Lymphocytes # (auto) 1.9 10 ^3/uL (0.4-5.4); Lymphocytes % (auto) 12.1 % (10.0-50.0); Mean Corpuscular Hemoglobin 22.9 pg (28.0-32.0); Mean Corpuscular Hgb Conc. 31.8 g/dL (32.0-36.0); Monocytes # (auto) 1.6 10 ^3/uL (0-1.3); Monocytes % (auto) 9.9 % (0.0-12.0); Neutrophils # (auto) 12.1 10 ^3/uL (1.6-8.6); Neutrophils % (auto) 75.9 % (37.0-80.0); Red Blood Cells 4.18 10^6/uL (4.5-5.90); Red Cell Distribution Width 16.6 % (11.8-14.3)
[2021-02-23 05:58] LABS: INR 1.16 (0.9-1.15); Partial Thromboplastin Time 36.5 sec (23.6-33.0)
[2021-02-23] MEDS: metroNIDAZOLE 500 MG TAB PO SCH ×3 (06:00→22:25)
[2021-02-23 06:09] LABS: Albumin 1.8 g/dL (3.4-5.0); BUN/Creatinine Ratio 15.5; Bilirubin, Total 0.2 mg/dL (0.2-1.0); Magnesium 2.2 mg/dL (1.6-2.6); Phosphorus 2.8 mg/dL (2.5-4.90); Total Protein 6.8 g/dL (6.4-8.2)
[2021-02-23] MEDS ORDERED: POVIDONE IODINE 10 % TOPICAL OINT 30GM TOP ONE ×2 (07:37→08:08)
[2021-02-23] MEDS: Glucerna Carbsteady SHAKE Vanilla 8oz PO SCH ×3 (08:00→17:40)
[2021-02-23] MEDS ORDERED: SUCCINYLCHOLINE CHLORIDE 20 MG/ML 10ML VIAL IV ONE (08:46)
[2021-02-23] MEDS ORDERED: fentaNYL CITRATE 100 MCG/2 ML VL ONE (08:52)
[2021-02-23] MEDS ORDERED: MIDAZOLAM HCL 2MG/2ML 2ml VIAL (1mg/ml) ONE (08:53)
[2021-02-23] MEDS ORDERED: MEPERIDINE HCL (50 MG/ML) 1 ML VIAL ONE (08:54)
[2021-02-23] MEDS ORDERED: DexAMETHasone SOD PHOS 10MG/1ML VIAL INJ ONE (08:58)
[2021-02-23] MEDS ORDERED: PROPOFOL 10 MG/ML 20 ML IV ONE (09:09)
[2021-02-23] MEDS: GABAPENTIN 100 MG CAP PO SCH ×2 (10:00→22:25)
[2021-02-23] MEDS: FINASTERIDE 5 MG TAB PO SCH (10:00)
[2021-02-23] MEDS: ASPirin 81 mg TAB PO SCH (10:00)
[2021-02-23] MEDS: DAKINS HALF STR 0.25% (NaHypochlorite) 473 ML TOPICAL SOL TOP SCH ×2 (10:00→22:26)
[2021-02-23] MEDS: ENOXAPARIN SOD 40 MG/0.4 ML SYRINGE SC SCH (10:00)
[2021-02-23] MEDS: FLORASTOR (S. BOULARDII) 250 MG CAP PO SCH (10:00)
[2021-02-23] MEDS ORDERED: MEPERIDINE HCL (25 MG/ML) 1ML VIAL ONE (10:01)
[2021-02-23] MEDS ORDERED: MORPHINE SULFATE 4 MG/ML SYR/VIAL IV PRN (11:00)
[2021-02-23] MEDS ORDERED: ONDANSETRON HCL 4 MG/2 ML VIAL IV PRN (11:00)
[2021-02-23] MEDS ORDERED: HYDROmorphone HCL 2 MG/ML VL IV PRN (11:00)
[2021-02-23] MEDS ORDERED: LABETALOL HCL 5 MG/ML 4ML SYRINGE IV PRN (11:00)
[2021-02-23] MEDS ORDERED: MIDAZOLAM HCL 2MG/2ML 2ml VIAL (1mg/ml) IV PRN (11:00)
[2021-02-23] MEDS ORDERED: ePHEDrine SULFATE 50 MG/ML AMP IV PRN (11:00)
[2021-02-23] MEDS ORDERED: ACCU-CHEK COMFORT CURVE STRIP VI ONE (11:00)
[2021-02-23 13:00] VITALS: BP 139/84
[2021-02-23] MEDS: HYDROcodone-ACET 5/325MG TAB PO PRN (16:30)
[2021-02-23 17:00] VITALS: BP 103/63
[2021-02-23 22:00] VITALS: BP 130/101
[2021-02-23] MEDS: ATORVASTATIN 20 MG TAB PO SCH (22:25)
[2021-02-24] MEDS: ACCU-CHEK COMFORT CURVE STRIP VI SCH ×4 (00:08→17:33)
[2021-02-24] MEDS: InsuLIN REG 1unit/0.01ml Soln (100units/ml) SC SCH ×4 (00:14→17:34)
[2021-02-24] MEDS: HYDROmorphone HCL 2 MG/ML VL IV PRN (00:40)
[2021-02-24] MEDS: PIPERACILLIN-TAZOB 3.375GM 100 ML IV SCH ×3 (02:23→17:33)
[2021-02-24] MEDS: HYDROcodone-ACET 5/325MG TAB PO PRN ×4 (03:39→21:50)
[2021-02-24 05:00] VITALS: BP 100/51
[2021-02-24 05:59] LABS: Eosinophils # (auto) 0 10 ^3/uL (0-0.8); Hemoglobin 8.7 g/dL (13.5-17.5); Lymphocytes # (auto) 2.3 10 ^3/uL (0.4-5.4); Monocytes # (auto) 2.2 10 ^3/uL (0-1.3); Monocytes % (auto) 10.5 % (0.0-12.0)
[2021-02-24 06:02] LABS: Basophils # (auto) 0.1 10 ^3/uL (0-0.2); Basophils % (auto) 0.3 % (0.0-2.0); Eosinophils % (auto) 0.1 % (0.0-7.0); Hematocrit 27.6 % (41.0-53.0); Lymphocytes % (auto) 10.7 % (10.0-50.0); Mean Corpuscular Hemoglobin 22.7 pg (28.0-32.0); Mean Corpuscular Hgb Conc. 31.5 g/dL (32.0-36.0); Mean Corpuscular Volume 72.1 fL (80.0-100.0); Neutrophils # (auto) 16.6 10 ^3/uL (1.6-8.6); Neutrophils % (auto) 78.4 % (37.0-80.0); Red Blood Cells 3.83 10^6/uL (4.5-5.90); Red Cell Distribution Width 16.6 % (11.8-14.3); White Blood Cell 21.1 10^3/uL (4.4-10.8)
[2021-02-24 06:19] LABS: Calcium 8.6 mg/dL (8.5-10.1); Potassium 3.7 mmol/L (3.5-5.1)
[2021-02-24] MEDS: Glucerna Carbsteady SHAKE Vanilla 8oz PO SCH ×3 (08:19→17:33)
[2021-02-24 09:00] VITALS: BP 117/51
[2021-02-24] MEDS: FLORASTOR (S. BOULARDII) 250 MG CAP PO SCH (10:24)
[2021-02-24] MEDS: ASPirin 81 mg TAB PO SCH (10:24)
[2021-02-24] MEDS: GABAPENTIN 100 MG CAP PO SCH (10:24)
[2021-02-24] MEDS: FINASTERIDE 5 MG TAB PO SCH (10:24)
[2021-02-24] MEDS: BACITRACIN TOP OINT 1 UD PKG TOP SCH (10:25)
[2021-02-24] MEDS: DAKINS HALF STR 0.25% (NaHypochlorite) 473 ML TOPICAL SOL TOP SCH ×2 (10:25→21:49)
[2021-02-24 13:00] VITALS: BP 117/59
[2021-02-24] MEDS: GABAPENTIN 300 MG CAP PO SCH ×2 (14:03→21:49)
[2021-02-24 17:00] VITALS: BP 111/65
[2021-02-24] MEDS: ATORVASTATIN 20 MG TAB PO SCH (21:49)
[2021-02-24 22:00] VITALS: BP 132/70
[2021-02-25] MEDS: InsuLIN REG 1unit/0.01ml Soln (100units/ml) SC SCH ×3 (00:41→12:25)
[2021-02-25] MEDS: ACCU-CHEK COMFORT CURVE STRIP VI SCH ×3 (00:41→12:03)
[2021-02-25] MEDS: PIPERACILLIN-TAZOB 3.375GM 100 ML IV SCH ×2 (01:27→10:12)
[2021-02-25 04:20] VITALS: BP 95/66
[2021-02-25] MEDS: GABAPENTIN 300 MG CAP PO SCH ×2 (05:55→14:40)
[2021-02-25 05:56] LABS: Basophils # (auto) 0 10 ^3/uL (0-0.2); Basophils % (auto) 0.2 % (0.0-2.0); Eosinophils # (auto) 0 10 ^3/uL (0-0.8); Eosinophils % (auto) 0.1 % (0.0-7.0); Hematocrit 27.6 % (41.0-53.0); Hemoglobin 8.8 g/dL (13.5-17.5); Lymphocytes # (auto) 1.6 10 ^3/uL (0.4-5.4); Lymphocytes % (auto) 8.9 % (10.0-50.0); Mean Corpuscular Hemoglobin 22.9 pg (28.0-32.0); Mean Corpuscular Hgb Conc. 31.7 g/dL (32.0-36.0); Mean Corpuscular Volume 72.3 fL (80.0-100.0); Monocytes # (auto) 2.3 10 ^3/uL (0-1.3); Monocytes % (auto) 12.3 % (0.0-12.0); Neutrophils # (auto) 14.5 10 ^3/uL (1.6-8.6); Neutrophils % (auto) 78.5 % (37.0-80.0); Red Blood Cells 3.82 10^6/uL (4.5-5.90); Red Cell Distribution Width 16.8 % (11.8-14.3); White Blood Cell 18.4 10^3/uL (4.4-10.8)
[2021-02-25] MEDS: HYDROcodone-ACET 5/325MG TAB PO PRN ×2 (05:56→14:40)
[2021-02-25 06:09] LABS: BUN/Creatinine Ratio 9.8; Calcium 8.4 mg/dL (8.5-10.1); Potassium 3.4 mmol/L (3.5-5.1)
[2021-02-25 08:30] VITALS: BP 122/62
[2021-02-25] MEDS: Glucerna Carbsteady SHAKE Vanilla 8oz PO SCH ×2 (08:30→12:25)
[2021-02-25 08:58] VITALS: BP 122/62
[2021-02-25] MEDS: DAKINS HALF STR 0.25% (NaHypochlorite) 473 ML TOPICAL SOL TOP SCH (10:00)
[2021-02-25] MEDS: FLORASTOR (S. BOULARDII) 250 MG CAP PO SCH (10:12)
[2021-02-25] MEDS: ASPirin 81 mg TAB PO SCH (10:12)
[2021-02-25] MEDS: FINASTERIDE 5 MG TAB PO SCH (10:12)
[2021-02-25] MEDS ORDERED: POTASSIUM CHL 20 Meq TABLET PO ONE (10:45)
[2021-02-25 12:25] VITALS: BP 122/62
[2021-02-25 13:00] VITALS: BP 136/68
== END 2021-02-25 17:14 | DRG 474 ==
LOC: EDUNIT# 20:45 → WEST WING 20:45
PROVIDERS: ADMIT Internal Medicine; ATTEND Internal Medicine
PROC: 0Y6C0Z3 Detachment at Right Upper Leg, Low, Open Approach (ICD-10-PCS; principal; 2021-02-24)
PROC: 0Y6D0Z3 Detachment at Left Upper Leg, Low, Open Approach (ICD-10-PCS; 2021-02-24)
DX: T87.44 Infection of amputation stump, left lower extremity (principal); A41.52 Sepsis due to Pseudomonas; E11.52 Type 2 diabetes mellitus with diabetic peripheral angiopathy with gangrene; E44.0 Moderate protein-calorie malnutrition; L03.115 Cellulitis of right lower limb; I70.263 Atherosclerosis of native arteries of extremities with gangrene, bilateral legs; B96.5 Pseudomonas (aeruginosa) (mallei) (pseudomallei) as the cause of diseases classified elsewhere; D64.9 Anemia, unspecified; E11.621 Type 2 diabetes mellitus with foot ulcer; E78.5 Hyperlipidemia, unspecified; F17.200 Nicotine dependence, unspecified, uncomplicated; I10 Essential (primary) hypertension; J44.9 Chronic obstructive pulmonary disease, unspecified; L97.519 Non-pressure chronic ulcer of other part of right foot with unspecified severity; Z88.1 Allergy status to other antibiotic agents; R29.6 Repeated falls; Z20.822 Contact with and (suspected) exposure to COVID-19; R32 Unspecified urinary incontinence; R19.7 Diarrhea, unspecified; S81.802A Unspecified open wound, left lower leg, initial encounter; X58.XXXA Exposure to other specified factors, initial encounter; Y83.5 Amputation of limb(s) as the cause of abnormal reaction of the patient, or of later complication, without mention of misadventure at the time of the procedure; Y92.89 Other specified places as the place of occurrence of the external cause; Z82.49 Family history of ischemic heart disease and other diseases of the circulatory system; Z83.3 Family history of diabetes mellitus; Z89.512 Acquired absence of left leg below knee; Y93.89 Activity, other specified; Y99.8 Other external cause status
CPT/HCPCS: 36415; 71045; 80048; 80053; 81001; 82962; 83540; 83550; 83605; 83735; 84100; 84132; 84484; 85025; 85610; 85730; 86850; 86900; 86901; 87040; 87077; 87081; 87186; 87205; 87493; 97163; G0378; J0330; J0696; J1100; J1815; J2185; J2250; J2543; J2704; J3490